=== PATIENT | female | born 1985 | race Two or more races ===

== ENCOUNTER 2020-03-18 17:00 | Outpatient (REF) | payer OTHER, SELFPAY ==
[2020-03-18 17:40] LABS: MANUAL DIFF FLAG NO
[2020-03-18 17:45] LABS: Basophils Absolute Auto 0.1 X10*3/uL (0.0-0.2); Basophils Percent Auto 0.5 % (0-2); Eosinophils Absolute Auto 0.1 X10*3/uL (0.0-0.4); Eosinophils Percent Auto 0.9 % (0-4); Hematocrit 42.1 % (37-47); Hemoglobin 13.4 g/dl (12.0-16.0); Imm Gran Abs Auto 0.03 X10*3/uL (0.00-0.03); Imm Gran Pct Auto 0.3 % (0.0-0.4); Lymphocytes Absolute Auto 2.3 X10*3/uL (1.2-4.9); Lymphocytes Percent Auto 24.3 % (20-40); Mean Corpuscular HGB Conc 31.8 g/dl (31.0-35.0); Mean Corpuscular Hemoglobin 27.9 pg (27.0-33.0); Mean Corpuscular Volume 87.7 fL (80-98); Monocytes Absolute Auto 0.4 X10*3/uL (0.1-1.2); Monocytes Percent Auto 4.7 % (2-11); Neutrophils Absolute Auto 6.4 X10*3/uL (2.0-8.3); Neutrophils Percent Auto 69.3 % (45-73); Platelet Count 310 X10*3/uL (160-400); Red Cell Distribution Width 13.8 % (11.0-16.0); White Blood Count 9.3 X10*3/uL (4.8-10.8)
[2020-03-18 18:06] LABS: Anion Gap 14 (12-20); Blood Urea Nitrogen 19 mg/dL (9-16); Carbon Dioxide 24 mmol/L (22-29); Chloride 104 mmol/L (96-108); Estimated Glomerular Filt Rate > 60; Glucose Random 77 mg/dL (60-115); Potassium 4.5 mmol/l (3.3-5.1); Sodium 137 mmol/L (135-145)
[2020-03-18 18:14] LABS: HCG Quantitative < 2 mIU/mL
== END 2020-03-18 17:01 | disposition home or self-care (01) ==
LOC: HO.LAB 17:00
PROVIDERS: PCP Nurse Practitioner Family; Visit Provider Nurse Practitioner Family
DX: Z13.228 Encounter for screening for other metabolic disorders (principal); Z32.00 Encounter for pregnancy test, result unknown
CPT/HCPCS: 36415; 80048; 84702; 85025

== ENCOUNTER 2020-07-09 08:54 | Outpatient (REF) | payer OTHER, SELFPAY ==
--- NOTE | ~2020-07-09 | MM_ITS ---
EXAMINATION: MM DIAGNOSTIC DIGITAL BREAST TOMOSYNTHESIS, LEFT CLINICAL INFORMATION: Short interval six-month follow-up probable benign nodule anterior 3:00 left breast. Age 35. TC score 7%. COMPARISON: Mammography: 01/09/2020, 09/14/2016, targeted breast ultrasound 01/09/2020. TECHNIQUE: Digital breast tomosynthesis is performed in both the craniocaudal and mediolateral oblique views along with computer-aided detection (CAD). Synthesized 2D images are generated from the tomosynthesis. FINDINGS: There are scattered areas of fibroglandular density (ACR BI-RADS breast composition Category b). The tiny circumscribed nodule under 5 mm anterior 3:00 position is stable from prior exam 01/09/2020. Finding is new from mammography 2017. It will be reassessed again at time of annual follow-up, due in 6 months. The remainder of the left breast is unremarkable. Results are provided to the patient at time of visit by the technologist. MM/MM tomosynthesis diagnostic LT IMPRESSION: Small circumscribed nodule anterior 3:00 position stable from prior exam 01/09/2020. ASSESSMENT: BI-RADS 3: Probably Benign RECOMMENDATION: Diagnostic mammography in 6 months. This patient's information was entered into a reminder system with a target due date for their next mammogram.
== END 2020-07-09 08:55 | disposition home or self-care (01) ==
LOC: HO.MAMMO 08:54
PROVIDERS: Visit Provider Obstetrics & Gynecology
DX: N63.25 Unspecified lump in the left breast, overlapping quadrants (principal)
CPT/HCPCS: 77061; 77065

== ENCOUNTER 2021-01-12 12:26 | Outpatient (REF) | payer OTHER, SELFPAY ==
--- NOTE | ~2021-01-12 | MM_ITS ---
EXAMINATION: MM DIAGNOSTIC DIGITAL BREAST TOMOSYNTHESIS, BILATERAL CLINICAL INFORMATION: 35-year-old for follow-up probable benign circumscribed nodule anterior 3:00 left breast. Finding noted on diagnostic mammography performed for palpable concern contralateral right breast. Right breast symptoms no longer present. Due for yearly. The lifetime risk of breast cancer based on the Tyrer-Cuzick Model is 7%. COMPARISON: Mammography: 07/09/2020, 01/09/2020, 09/14/2016, targeted right breast ultrasound 09/14/2016, targeted bilateral breast ultrasound 01/09/2020. TECHNIQUE: Digital breast tomosynthesis is performed in both the craniocaudal and mediolateral oblique views along with computer-aided detection (CAD). Synthesized 2D images are generated from the tomosynthesis. FINDINGS: There are scattered areas of fibroglandular density (ACR BI-RADS breast composition Category b). Breast tissue composition borders on predominantly fatty. Background stromal and fibroglandular densities are stable. There is asymmetry of the breasts, right larger, similar to prior studies. There is no interval mass or architectural abnormality or developing density. No abnormal calcifications. The axilla and skin contours are unremarkable. The circumscribed tiny nodule anterior 3:00 left breast is stable. Margins remain smooth. There was no ultrasound correlate noted previously. Finding will be reassessed again in 6 months with diagnostic left mammography. Results are provided to the patient at time of visit by the technologist. MM/MM tomosynthesis diagnostic BI IMPRESSION: 1. Left: Tiny smooth circumscribed nodule anterior 3:00 position, stable. 2. Right: No mammographic evidence of malignancy. ASSESSMENT: BI-RADS 3: Probably Benign RECOMMENDATION: Diagnostic left mammography in 6 months. This patient's information was entered into a reminder system with a target due date for their next mammogram.
== END 2021-01-12 12:27 | disposition home or self-care (01) ==
LOC: HO.MAMMO 12:26
PROVIDERS: Visit Provider Obstetrics & Gynecology
DX: N64.89 Other specified disorders of breast (principal)
CPT/HCPCS: 77062; 77066

== ENCOUNTER 2021-03-19 13:47 | Outpatient (REF) | payer OTHER, SELFPAY ==
[2021-03-19 17:03] LABS: HCG Quantitative 15 mIU/mL
== END 2021-03-19 13:48 | disposition home or self-care (01) ==
LOC: HO.HMGCLDS 13:47
PROVIDERS: Visit Provider Physician Assistant Medical
DX: Z32.00 Encounter for pregnancy test, result unknown (principal)
CPT/HCPCS: 36415; 84702

== ENCOUNTER 2021-03-30 11:31 | Outpatient (REF) | payer OTHER, SELFPAY ==
[2021-03-30 14:34] LABS: HCG Quantitative 20 mIU/mL
== END 2021-03-30 11:32 | disposition home or self-care (01) ==
LOC: HO.WFDLDS 11:31
PROVIDERS: Visit Provider Hospitalist
DX: O20.9 Hemorrhage in early pregnancy, unspecified (principal)
CPT/HCPCS: 36415; 84702

== ENCOUNTER 2021-04-02 08:03 | Outpatient (REF) | payer OTHER, SELFPAY ==
[2021-04-02 09:48] LABS: HCG Quantitative < 2 mIU/mL
== END 2021-04-02 08:04 | disposition home or self-care (01) ==
LOC: HO.LAB 08:03
PROVIDERS: PCP Internal Medicine; Visit Provider Hospitalist
DX: O20.9 Hemorrhage in early pregnancy, unspecified (principal)
CPT/HCPCS: 36415; 84702

== ENCOUNTER 2021-04-22 12:21 | Outpatient (REF) | payer OTHER, SELFPAY ==
[2021-04-22 13:49] LABS: Basophils Absolute Auto 0.1 X10*3/uL (0.0-0.2); Basophils Percent Auto 0.6 % (0-2); Eosinophils Absolute Auto 0.1 X10*3/uL (0.0-0.4); Eosinophils Percent Auto 0.8 % (0-4); Hematocrit 43.1 % (37.0-47.0); Hemoglobin 13.7 g/dl (12.0-16.0); Imm Gran Abs Auto 0.02 X10*3/uL (0.00-0.03); Imm Gran Pct Auto 0.2 % (0.0-0.4); Lymphocytes Absolute Auto 2.6 X10*3/uL (1.2-4.9); Lymphocytes Percent Auto 23.8 % (20-40); MANUAL DIFF FLAG NO; Mean Corpuscular HGB Conc 31.8 g/dl (31.0-35.0); Mean Corpuscular Hemoglobin 27.7 pg (27.0-33.0); Mean Corpuscular Volume 87.1 fL (80.0-98.0); Mean Platelet Volume 11.2 fL (9.4-12.3); Monocytes Absolute Auto 0.6 X10*3/uL (0.1-1.2); Monocytes Percent Auto 5.9 % (2-11); Neutrophils Absolute Auto 7.4 x10*3/uL (2.0-8.3); Neutrophils Percent Auto 68.7 % (45-73); Platelet Count 284 X10*3/uL (160-400); Red Blood Count 4.95 X10*6/uL (4.20-5.50); Red Cell Distribution Width 14.1 % (11.0-16.0); White Blood Count 10.8 X10*3/uL (4.8-10.8)
[2021-04-22 14:10] LABS: Estimated Average Glucose 108 mg/dL; Hemoglobin A1c % 5.4 %
[2021-04-22 14:12] LABS: Alanine Aminotransferase 18 U/L (0-31); Anion Gap 11 (12-20); Aspartate Amino Transferase 18 U/L (5-31); Blood Urea Nitrogen 14 mg/dL (9-16); Calcium 9.4 mg/dL (8.4-10.2); Carbon Dioxide 26 mmol/L (22-29); Chloride 106 mmol/L (96-108); Cholesterol 178 mg/dL; Estimated Glomerular Filt Rate > 60; Glucose Fasting 74 mg/dL (60-99); HDL Cholesterol 52 mg/dL; LDL Cholesterol Calculated 103 mg/dl; Potassium 4.1 mmol/L (3.3-5.1); Sodium 139 mmol/L (135-145); Triglycerides 118 mg/dL
[2021-04-22 14:32] LABS: TSH reflex Free T4 1.13 uIU/mL (0.32-4.0); Vitamin D 25-OH Total 7.3 ng/mL (>30)
== END 2021-04-22 12:22 | disposition home or self-care (01) ==
LOC: HO.HMGCLDS 12:21
PROVIDERS: PCP Internal Medicine; Visit Provider Internal Medicine
DX: Z00.01 Encounter for general adult medical examination with abnormal findings (principal); F32.A Depression, unspecified; F41.9 Anxiety disorder, unspecified; K58.9 Irritable bowel syndrome, unspecified; R73.01 Impaired fasting glucose
CPT/HCPCS: 36415; 80048; 80061; 82306; 83036; 84443; 84450; 84460; 85025

== ENCOUNTER → 2021-05-12 15:38 | Outpatient (BNVA) | payer OTHER, SELFPAY | PROVIDERS: PCP Internal Medicine; Referring Provider Internal Medicine; Visit Provider Nurse Practitioner | DX: K21.9 Gastro-esophageal reflux disease without esophagitis (principal); K75.81 Nonalcoholic steatohepatitis (NASH); K82.4 Cholesterolosis of gallbladder; R11.0 Nausea; R19.7 Diarrhea, unspecified | CPT/HCPCS: 99212 ==

== ENCOUNTER 2021-06-12 14:14 | Outpatient (REF) | payer OTHER, SELFPAY ==
[2021-06-12 15:38] LABS: C Reactive Protein 0.57 mg/dL (< or = 0.50); Lipase 23 U/L (8-78)
[2021-06-12 15:59] LABS: Ferritin 22 ng/mL (10-122)
[2021-06-13 14:18] LABS: Transglutaminase Ab IgG <1.0 U/mL; Transglutaminase IgA <1.0 U/mL
[2021-06-13 14:22] LABS: Anti Nuclear Antibody Screen NEGATIVE (NEGATIVE)
[2021-06-16 13:16] LABS: Alpha Fetoprotein 1.7 ng/mL
[2021-06-16 15:06] LABS: Mitochondrial Antibodies NEGATIVE (NEGATIVE)
[2021-06-17 00:16] LABS: Smooth Muscle Antibody <20 U (<20)
== END 2021-06-12 14:15 | disposition home or self-care (01) ==
LOC: HO.LAB 14:14
PROVIDERS: Visit Provider Nurse Practitioner
DX: K75.81 Nonalcoholic steatohepatitis (NASH) (principal); K82.4 Cholesterolosis of gallbladder; R11.0 Nausea
CPT/HCPCS: 36415; 82105; 82728; 83690; 86015; 86038; 86039; 86140; 86255; 86256; 86364

== ENCOUNTER → 2021-06-16 15:14 | Outpatient (BNVA) | payer OTHER, SELFPAY | PROVIDERS: PCP Internal Medicine; Referring Provider Internal Medicine; Visit Provider Nurse Practitioner | DX: K75.81 Nonalcoholic steatohepatitis (NASH) (principal); R19.7 Diarrhea, unspecified; K21.9 Gastro-esophageal reflux disease without esophagitis; R11.0 Nausea | CPT/HCPCS: 99212 ==

== ENCOUNTER 2021-06-22 07:52 | Day surgery (SDC) | payer OTHER, SELFPAY ==
[2021-06-22 08:09] VITALS: BMI 34.0
[2021-06-22 08:31] LABS: UPreg QC Valid YES; Urine Pregnancy NEGATIVE (NEGATIVE)
[2021-06-22 08:49] VITALS: BP 114/70; PULSE 68; RESP 16; TEMP 37; O2SAT 99; BMI 34.0
--- NOTE | 2021-06-22 08:50 | P.CONAN_ITS ---
[facility] Active Problems Active Problems: All Active Problems (Updated 06/09/21 @ 14:33 by Nellie Turner MD) History of recurrent miscarriages (Acute) Diarrhea (Acute) Nausea (Acute) BRODY (nonalcoholic steatohepatitis) (Acute) GERD (gastroesophageal reflux disease) (Acute) Gallbladder polyp (Acute) Vaccine refused by patient (Acute) Annual visit for general adult medical examination with abnormal findings (Acute) Anxiety and depression (Acute) Past Medical History Medical History Annual visit for general adult medical examination with abnormal findings Anxiety and depression Gallbladder polyp History of recurrent miscarriages IBS (irritable bowel syndrome) Vaccine refused by patient Family History Family History Father Substance use disorder Diabetes mellitus Mother Substance use disorder Mental health disorder Maternal Aunt Substance use disorder Maternal Grandfather Substance use disorder Brother Substance use disorder Mental health disorder Sister Mental health disorder Sister Mental health disorder Family history of problems with anesthesia: No Surgical History Surgical History No pertinent past surgical history History of Problems with Anesthesia: No Social History Social History Housing: House Patient Tobacco Use Status: Current everyday Tobacco user Tobacco use type: Cigarette Cigarettes Per Day: 3 e-Cigarette/Vaping Use: Never Used Use of substances other than those prescribed or required for medical reasons: No Advance Directives: No Advance Directives Information Provided: Yes service: No Current occupational status: employed Meds Allergies Allergy/AdvReac Type Severity Reaction Status Date / Time No Known Allergies Allergy Verified 06/16/21 15:42 Active Medications: Current Medications Lactated Ringer's (Lr) 1,000 mls @ 50 mls/hr IVCONT .Q20H RYAN Exam Exam Date and Time: June 22, 2021 0850 Height,Weight and Vital Signs: Height 5 ft Weight 78.925 kg Pertinent Lab Results Pertinent Lab Results: Laboratory Tests 06/22/21 08:05 Urine Test NEGATIVE Airway Mallampati Class: II TM Dist: >3cm Neck ROM: Full Heart: rrr Lungs: cta Assessment and Plan Assessment Anesthesia Assessment: Anesthesia Plan Discussed and Chart Reviewed Final Anesthetic Review Family History of Problems with Anesthesia: No History of Problems with Anesthesia: No NPO: No ASA Class: II Final Preanesthetic Review: No Changes in Pt Med Stat, Meds/Allgs Chart Reviewed and Consent Obtained/Reviewed Patient Risk: Intermediate Procedure Risk: Intermediate Anesthetic Plan Anesthetic Plan: MAC: Disposition: Standard PACU
--- NOTE | 2021-06-22 09:18 | MHC.SHP ---
Pre-Procedural Eval Section A Date of Service: 06/22/21 The patient is an INPATIENT: No Changes since office visit: Yes Patient answered all questions; No Cold of Flu in the past 2 weeks, No New Medical Problems and No Changes in Medication The History & Physical has been completed within 30 days and I have reviewed it.: Yes Section B Chief Complaint: reflux disease Allergies: Allergies Allergy/AdvReac Type Severity Reaction Status Date / Time No Known Allergies Allergy Verified 06/16/21 15:42 Plan I have reviewed the history and physical and performed a pertinent physical examination on my patient. No changes have occurred unless specified.
--- NOTE | 2021-06-22 09:19 | PM.OP ---
Brief Operative Note Date of Service: 06/22/21 Pre-op diagnosis: Nausea, abdominal pain, diarrhea and constipation Post-op diagnosis: other (Esophagitis, gastritis) Procedure: FLEXIBLE TRANSORAL UPPER GASTROINTESTINAL ENDOSCOPY WITH BIOPSIES Consent: Indications for the procedure and potential complications of bleeding, perforation, reaction to medications and missed diagnosis were discussed with the patient and informed consent was obtained. Instrument: Olympus GIF H 190 mid size upper endoscope Monitoring: Vital signs and clinical assessment, continuous EKG monitoring, Pulse oximetry, Carbon Dioxide monitoring and blood pressure monitoring were done throughout the procedure. Procedure: The patient was placed in the left lateral decubitis position and pre-procedure medications were administered and a bite block was placed. The endoscope was inserted into the mouth and advanced under direct vision to the third part of duodenum. A careful inspection was made as the upper endoscope was withdrawn including a retroflexed examination of the proximal stomach; Findings and interventions are described below. Findings: Larynx: Normal Esophagus: GE junction at 34 cms. Focal esophagitis at GE junction with nodular appearing mucosa on the gastric side - biopsies. Stomach: Mild gastric erythema. Biopsies were obtained. Grade 2 flap valve on retroflexed examination of the cardia. Duodenum: Normal bulb and descending duodenum. Biopsies were obtained from 3rd part of the duodenum to check for celiac sprue. Intervention: Biopsies as noted above Impression and Post Procedure Diagnosis: Endoscopy Findings: ESOPHAGUS: GE junction at 34 cms. Focal esophagitis at GE junction with nodular appearing mucosa on the gastric side - biopsies. STOMACH: Gastritis - biopsied to check for H pylori DUODENUM: Normal - biopsies obtained to rule out celiac sprue Plan: Await pathology results Patient has an appointment on 07/06/21 in the GI Clinic with Rupal Ray NP . Above findings were reviewed with the patient and GERD handout was given in the discharge area Surgeon: Shannan Morse MD Anesthesia: MAC (Dr Lemus) Was an Clinical Nurse Educator used for this Procedure?: Yes Clinical Nurse Educator: Belle Van Estimated blood loss (mL): 0 Pathology: other (A. small bowel bxs, R/O celiac B. gastric antrum bxs, R/O H. pylori C. G-E junction bxs, R/O esophagitis) Condition: stable Disposition: PACU
--- NOTE | 2021-06-22 09:24 | W.PM.OPN ---
Operative Note Operative Note Date of Service: 06/22/21 Narrative: Pre-op diagnosis: Nausea, abdominal pain, diarrhea and constipation Post-op diagnosis:?other (Esophagitis, gastritis) Procedure: FLEXIBLE TRANSORAL UPPER GASTROINTESTINAL ENDOSCOPY WITH BIOPSIES Consent:?Indications for the procedure and potential complications of bleeding, perforation, reaction to medications and missed diagnosis were discussed with the patient and informed consent was obtained. Instrument:?Olympus GIF H 190 mid size upper endoscope Monitoring: Vital signs and clinical assessment, continuous EKG monitoring, Pulse oximetry, Carbon Dioxide monitoring and blood pressure monitoring were done throughout the procedure. Procedure:?The patient was placed in the left lateral decubitis position and pre-procedure medications were administered and a bite block was placed. The endoscope was inserted into the mouth and advanced under direct vision to the third part of duodenum. A careful inspection was made as the upper endoscope was withdrawn including a retroflexed examination of the proximal stomach; Findings and interventions are described below. Findings: Larynx:? Normal Esophagus: GE junction at 34 cms. Focal esophagitis at GE junction with nodular appearing mucosa on the gastric side - biopsies. Stomach: Mild gastric erythema. Biopsies were obtained. Grade 2 flap valve on retroflexed examination of the cardia. Duodenum: Normal bulb and descending duodenum.? Biopsies were obtained from 3rd part of the duodenum to check for celiac sprue. Intervention: Biopsies as noted above Impression and Post Procedure Diagnosis: Endoscopy Findings: ESOPHAGUS: GE junction at 34 cms. Focal esophagitis at GE junction with nodular appearing mucosa on the gastric side - biopsies. STOMACH:? Gastritis - biopsied to check for H pylori DUODENUM:? Normal - biopsies obtained to rule out celiac sprue Plan: Await pathology results Patient is scheduled for an abd US and a HIDA scan later this month She has a follow-up appointment on 07/06/21 in the GI Clinic with? Rupal Ray NP? . Above findings were reviewed with the patient and GERD handout was given in the discharge area Surgeon: Shannan Morse MD Anesthesia:?MAC (Dr Lemus) Was an Director Of Financial Planning used for this Procedure?:?Yes Director Of Financial Planning:?Belle Van Estimated blood loss (mL):?0 Pathology:?other (A. small bowel bxs, R/O celiac? B. gastric antrum bxs, R/O H. pylori? C. G-E junction bxs, R/O esophagitis) Condition:?stable Disposition:?PACU
[2021-06-22 09:40] VITALS: BP 99/66; PULSE 68; RESP 16; TEMP 37.2; O2SAT 97
[2021-06-22 09:55] VITALS: BP 103/63; PULSE 62; RESP 18; TEMP 37.2; O2SAT 99
== END 2021-06-22 10:25 | disposition home or self-care (01) ==
PROVIDERS: Anesthesiology; PCP Internal Medicine; Visit Provider Internal Medicine Gastroenterology
PROC: 0DJ08ZZ Inspection of Upper Intestinal Tract, Via Natural or Artificial Opening Endoscopic (ICD-10-PCS; CPT 43235; principal; 2021-06-22 09:20)
DX: K21.9 Gastro-esophageal reflux disease without esophagitis (principal); K20.80 Other esophagitis without bleeding; K29.50 Unspecified chronic gastritis without bleeding; K75.81 Nonalcoholic steatohepatitis (NASH); K82.4 Cholesterolosis of gallbladder; R19.7 Diarrhea, unspecified; Z79.899 Other long term (current) drug therapy; F17.210 Nicotine dependence, cigarettes, uncomplicated
CPT/HCPCS: 43239; 81025; 88305; 88342

== ENCOUNTER 2021-07-06 09:18 | Outpatient (REF) | payer OTHER, SELFPAY ==
--- NOTE | ~2021-07-06 | US_ITS ---
EXAMINATION: US ABDOMEN COMPLETE CLINICAL INFORMATION: Nausea. COMPARISON: Ultrasound abdomen 07/10/2018 and 12/26/2017. CT abdomen and pelvis 12/28/2006. TECHNIQUE: Real-time imaging of the abdominal viscera. FINDINGS: PANCREAS: Pancreas is not well visualized. There is a 5 mm echogenic density in the neck of the pancreas questionable for a calcification or stone. This was not seen on prior exams. ABDOMINAL AORTA: The proximal, mid, and distal segments are normal in caliber. INFERIOR VENA CAVA: Visualized portions are normal. LIVER: The liver is normal in size. The liver contour is normal. Liver echotexture is increased. There is a 1.3 cm hypoechoic lesion in the left lobe of the liver. There is a 0.9 x 0.7 x 1.2 cm hypoechoic area in the right lobe of the liver which may represent an area of focal fatty sparing. No other liver lesion is seen. There is no intrahepatic biliary duct dilatation seen. GALLBLADDER: There are multiple echogenic densities in the gallbladder. These do not move or shadow and most likely represent gallbladder wall polyps. The largest measures 0.8 x 0.7 x 0.9 cm. This appears increased in size from previous exam which measured 5 x 6 x 6 mm. The gallbladder wall does not appear thickened. There is no pericholecystic fluid. COMMON BILE DUCT: Normal in caliber measuring 0.5 cm in diameter. RIGHT KIDNEY: Normal. No hydronephrosis. No renal calculi or focal parenchymal lesions. The kidney measures 11.2 cm in maximum dimension. LEFT KIDNEY: Normal. No hydronephrosis. No renal calculi or focal parenchymal lesions. The kidney measures 11.1 cm in maximum dimension. SPLEEN: Normal. The spleen measures 11.3 cm in maximum dimension. FREE FLUID: None. US/US abdomen complete IMPRESSION: Echogenic liver probably representing fatty infiltration. Hypoechoic area adjacent to the gallbladder probably representing an area of focal fatty sparing. Newly appreciated 1.3 cm hypoechoic lesion in the left lobe of the liver. Multiple gallbladder wall polyps, the largest measuring 8 x 7 x 9 mm, increased in size from prior exam. Limited visualization of the pancreas. Newly appreciated 5 mm echogenic lesion in the neck of the pancreas questionable for a calcification or stone. Followup abdominal imaging with contrast recommended, preferably MRI. Findings will be communicated by the [place] work flow digital imaging technician.
== END 2021-07-06 09:19 | disposition home or self-care (01) ==
LOC: HO.US 09:18
PROVIDERS: Visit Provider Nurse Practitioner
DX: R11.0 Nausea (principal)
CPT/HCPCS: 76700

== ENCOUNTER → 2021-07-07 10:47 | Outpatient (REF) | payer OTHER, SELFPAY ==
--- NOTE | ~2021-07-07 | NM_ITS ---
EXAMINATION: NM BILIARY TRACT WITH ORAL FATTY MEAL CLINICAL INFORMATION: Nausea. COMPARISON: No previous biliary scan is available for comparison. Abdominal ultrasound dated 07/06/2021 is available for comparison. CT scan of the abdomen dated 12/28/2006 is also available for comparison. TECHNIQUE: Serial gamma scintillation camera images were obtained over the abdomen for a total observation period of 130 minutes following the intravenous administration of 5 mCi Tc-99m Mebrofenin. FINDINGS: There is good concentration of activity in the liver by 5 minutes post injection. Biliary activity is visualized by 10 minutes postinjection and small bowel activity is well visualized by 15 minutes post injection. The gallbladder is well visualized by 30 minutes post injection. At 60 minutes post Mebrofenin injection, 8 ounces of Ensure-plus Brand was administered orally and an additional 60 minutes of images were obtained. There is only minimal gallbladder emptying following ingestion of the fatty meal. At the end of the study there is abnormal retention in the gallbladder but almost complete clearance of activity from the liver and visualization of diffuse small bowel activity. The calculated gallbladder ejection fraction is 18% (normal gallbladder ejection fraction using Ensure supplement orally is greater than 33%). NM/NM hepatobiliary wo pharm IMPRESSION: 1. Visualization of the gallbladder is evidence of a patent cystic duct and strong evidence against the diagnosis of acute cholecystitis. The common bile duct is patent. Liver function appears normal. 2. Poor gallbladder emptying and a low gallbladder ejection fraction are evidence of impaired gallbladder contractility and most likely due to chronic cholecystitis.
== END ==
LOC: HO.NUCMED 10:47
PROVIDERS: Visit Provider Nurse Practitioner
DX: R11.0 Nausea (principal)
CPT/HCPCS: 78226; A9537

== ENCOUNTER 2021-07-13 12:56 | Outpatient (REF) | payer OTHER, SELFPAY ==
--- NOTE | ~2021-07-13 | MM_ITS ---
EXAMINATION: MM DIAGNOSTIC DIGITAL BREAST TOMOSYNTHESIS, LEFT CLINICAL INFORMATION: Short interval six-month follow-up probable benign tiny nodular focal asymmetric density anterior 9 3:00 left breast. The lifetime risk of breast cancer based on the Tyrer-Cuzick Model is 7%. COMPARISON: Mammography: 01/12/2021, 01/09/2021, 01/09/2020 (diagnostic, BI-RADS 3), 09/14/2016; targeted left breast ultrasound 01/09/2020. TECHNIQUE: Digital breast tomosynthesis is performed in both the craniocaudal and mediolateral oblique views along with computer-aided detection (CAD). Synthesized 2D images are generated from the tomosynthesis. FINDINGS: There are scattered areas of fibroglandular density (ACR BI-RADS breast composition Category b). Breast tissue composition borders on predominantly fatty. Background stromal and fibroglandular densities are stable since 2020. There is no developing density or interval architectural abnormality. Finding will be reassessed again at time of annual bilateral mammography to conclude long-term surveillance. Remainder left breast is unremarkable. Results are provided to the patient at time of visit by the technologist. MM/MM tomosynthesis diagnostic LT IMPRESSION: Tiny focal nodular asymmetric density anterior 3:00 position stable from prior diagnostic exams. ASSESSMENT: BI-RADS 3: Probably Benign RECOMMENDATION: Diagnostic mammography at time of annual mammography, due in 6 months. This patient's information was entered into a reminder system with a target due date for their next mammogram.
== END 2021-07-13 12:57 | disposition home or self-care (01) ==
LOC: HO.MAMMO 12:56
PROVIDERS: Visit Provider Obstetrics & Gynecology
DX: N64.89 Other specified disorders of breast (principal)
CPT/HCPCS: 77061; 77065

== ENCOUNTER → 2021-07-28 16:43 | Outpatient (BNVA) | payer OTHER, SELFPAY | PROVIDERS: PCP Internal Medicine; Referring Provider Internal Medicine; Visit Provider Nurse Practitioner | DX: K75.81 Nonalcoholic steatohepatitis (NASH) (principal); K82.8 Other specified diseases of gallbladder; R19.7 Diarrhea, unspecified; K21.9 Gastro-esophageal reflux disease without esophagitis; R11.0 Nausea; F17.210 Nicotine dependence, cigarettes, uncomplicated | CPT/HCPCS: 99212 ==

== ENCOUNTER 2021-10-09 13:35 | Outpatient (REF) | payer OTHER, SELFPAY ==
[2021-10-09 14:54] LABS: HCG Quantitative 541 mIU/mL
== END 2021-10-09 13:36 | disposition home or self-care (01) ==
LOC: HO.HMGCLDS 13:35
PROVIDERS: Visit Provider Internal Medicine
DX: Z32.01 Encounter for pregnancy test, result positive (principal); N92.6 Irregular menstruation, unspecified
CPT/HCPCS: 36415; 84702

== ENCOUNTER 2022-01-21 12:39 | Outpatient (REF) | payer OTHER, SELFPAY ==
--- NOTE | ~2022-01-21 | MM_ITS ---
EXAMINATION: MM DIAGNOSTIC DIGITAL BREAST TOMOSYNTHESIS, BILATERAL CLINICAL INFORMATION: Follow-up probable benign punctate nodular asymmetry anterior outer left breast initially noted at diagnostic mammography 01/09/2024 contralateral right-sided symptoms. No known family history breast cancer. TC score 7%. COMPARISON: Mammography: 07/13/2021, 01/12/2021, 07/09/2020, 01/09/2020 (BI-RADS 0), 09/14/2016. TECHNIQUE: Digital breast tomosynthesis is performed in both the craniocaudal and mediolateral oblique views along with computer-aided detection (CAD). Synthesized 2D images are generated from the tomosynthesis. FINDINGS: The breasts are almost entirely fatty (ACR BI-RADS breast composition Category a). Background stromal markings are stable. The tiny nodular asymmetry anterior outer left breast is stable from prior diagnostic studies and now considered to be benign. There is asymmetry of the breast, right slightly larger, similar to prior exams. No interval mass or architectural abnormality or abnormal calcifications. The axilla are unremarkable. Skin contours are smooth. Results are provided to the patient at time of visit by the technologist. MM/MM tomosynthesis diagnostic BI IMPRESSION: No mammographic evidence of malignancy. ASSESSMENT: BI-RADS 2: Benign RECOMMENDATION: Routine annual mammography screening, beginning age 40, or earlier as clinical risk factors warrant. This patient's information was entered into a reminder system with a target due date for their next mammogram.
== END 2022-01-21 12:40 | disposition home or self-care (01) ==
LOC: HO.MAMMO 12:39
PROVIDERS: PCP Internal Medicine; Visit Provider Internal Medicine
DX: R92.2 Inconclusive mammogram (principal)
CPT/HCPCS: 77062; 77066

== ENCOUNTER 2022-03-04 13:59 | Emergency (ER) | payer OTHER, SELFPAY ==
--- NOTE | ~2022-03-04 | XR_ITS ---
EXAMINATION: XR CHEST CLINICAL INFORMATION: Chest pain. COMPARISON: None TECHNIQUE: Frontal view of the chest was obtained. FINDINGS: No significant abnormality is noted involving the heart, lungs, mediastinum, bony thorax or soft tissues. XR/XR chest 1V IMPRESSION: No acute cardiopulmonary process.
[2022-03-04 14:37] VITALS: BP 120/77; PULSE 79; RESP 18; TEMP 36.6; O2SAT 99; BMI 32.5
--- NOTE | 2022-03-04 14:38 | ECG_ITS ---
Test Reason : chest pain Blood Pressure : / mmHG Vent. Rate : 079 BPM Atrial Rate : 079 BPM P-R Int : 144 ms QRS Dur : 084 ms QT Int : 382 ms P-R-T Axes : 028 030 018 degrees QTc Int : 438 ms Normal sinus rhythm T wave abnormality, consider anterior ischemia Abnormal ECG No previous ECGs available Referred By: Angy Castellon Electronically Signed By:CECIL SUAREZ MD
--- NOTE | 2022-03-04 14:38 | ED.CHESTPAIN ---
HPI - Chest Pain General Chief Complaint: Chest Pain Stated Complaint: abnormal heart beat Time Seen by Provider: 03/04/22 18:55 Source: patient Mode of arrival: ambulatory History of Present Illness HPI narrative: 37-year-old female with a past medical history of IBS, anxiety, depression, presenting to ED sent in by PCP for abnormal EKG findings. Patient reports increasing anxiety over the past few weeks, with chest discomfort times 2-3 days. Reports pain worse with palpation with mild associated SOB and nausea. Denies fever, chills, cough, abdominal pain, pedal edema, calf pain Related Data Previous Rx's Medication Instructions Recorded lidocaine 5 % topical patch 1 patch topical DAILY PRN pain #30 03/04/22 (Lidoderm) ea lorazepam 1 mg tablet (Ativan) 1 mg PO TID PRN anxiety #10 tabs 03/04/22 naproxen 500 mg tablet 500 mg PO BID PRN pain 10 days #20 03/04/22 tabs Allergies Allergy/AdvReac Type Severity Reaction Status Date / Time No Known Allergies Allergy Verified 03/04/22 12:49 Review of Systems Review of Systems: Constitutional: No Fever, No Chills,No Fatigue, No Malaise ENT/Mouth: No Hearing loss, No Ear Pain, No Nasal Congestion, No Sinus Pain, No No sore throat, No Rhinorrhea, No Swallowing Difficulty Eyes: No Eye Pain, No Swelling, No Redness, No Vision Changes Cardiovascular: + Chest Pain, + SOB, No Dyspnea on Exertion, No Orthopnea, No Edema, No Palpitations Respiratory: No Cough, No Sputum, No Wheezing, No Smoke Exposure, No Dyspnea Gastrointestinal: + Nausea, No Vomiting, No Diarrhea, No Constipation, No Abdominal pain, Genitourinary: No Dysuria, No Urinary Frequency, No Hematuria, No Urgency, No Flank Pain Musculoskeletal: No joint pain, No Myalgias, No Joint Swelling Skin: No Skin Lesions, No rash Neuro: No Weakness, No Numbness, No Paresthesias, No Dizziness, No Headache Psych: +Anxiety Yes all other systems are reviewed and are negative Constitutional: Constitutional: Reports as per [facility] Past Medical History Attestation statement: The following information was validated with the patient. Medical History Annual visit for general adult medical examination with abnormal findings Anxiety and depression Gallbladder polyp History of recurrent miscarriages IBS (irritable bowel syndrome) Vaccine refused by patient Surgical History No pertinent past surgical history Family History Family History Father Substance use disorder Diabetes mellitus Mother Substance use disorder Mental health disorder Maternal Aunt Substance use disorder Maternal Grandfather Substance use disorder Brother Substance use disorder Mental health disorder Sister Mental health disorder Sister Mental health disorder Social History Social History Housing: House Patient Tobacco Use Status: Former Tobacco user Tobacco use type: Cigarette Cigarettes Per Day: 3 e-Cigarette/Vaping Use: Never Used Advance Directives: No Advance Directives Information Provided: Yes service: No Current occupational status: employed Cognitive needs: No Hearing needs: No Vision needs: No Physical Exam Vital Signs: Vital Signs: Last Vital Signs Temp 98 F 03/04/22 14:37 Pulse 62 03/04/22 18:45 Resp 16 03/04/22 18:45 BP 116/68 03/04/22 18:45 Pulse Ox 99 03/04/22 14:37 O2 Del Method 03/04/22 18:45 BMI result Body Mass Index 32.5 Const: General: cooperative, healthy appearing and no acute distress Orientation/consciousness: patient oriented x3 Limitations: no limitations HEENT: Head: Yes normal to inspection and Yes atraumatic Ears: hearing grossly normal bilaterally General nose exam: Normal external nose present Face and sinus: Yes normal facial exam Eyes: General: appearance normal, both eyes and all related structures EOM: EOMs intact bilaterally Neck: Neck: Yes normal visual inspection and Yes no meningeal signs Chest: Chest palpation & inspection: normal inspection of the chest, no crepitus and tenderness (upper chest wall) Resp: Effort & Inspection: normal respiratory effort and no respiratory distress Auscultation: clear to auscultation bilaterally, no crackles, no rales, no rhonchi and no wheezes Cardio: Rate: regular rate Heart sounds: S1 normal heart sound present and S2 normal heart sound present GI: Inspection: Yes normal to inspection Palpation (GI): Soft to palpation, nontender, no guarding and not rigid Skin: Rashes: no rashes Wounds: no wounds Neuro: General: patient oriented x3, tone normal and no meningeal signs Gait exam (Neuro): Normal gait present Extrem: General: Yes normal to inspection, Yes no pedal edema and Yes no calf tenderness Course Course Course Narrative: RME--37yoF w PMHx anxiety, depression, IBS, presenting to ED sent in from PCPs office for abnormal rate on EKG, pt reports CP, SOB and increased anxiety x 1 week. Denies fever, cough, pedal edema Nontoxic-appearing in triage, vitals stable EKG, labs, CXR and COVID-19 testing ordered 1900--XR chest 1V IMPRESSION: No acute cardiopulmonary process. -labs unremarkable. Troponin negative Results discussed with patient including worrisome signs and symptoms and strict return precautions, and when to return to the emergency department. They verbalized understanding and feel safe for discharge at this time. Medications Administered Discontinued Medications Generic Name Dose Route Start Last Admin Trade Name Freq PRN Reason Stop Dose Admin Naproxen 500 mg 03/04/22 19:05 03/04/22 19:21 Naproxen 500 Mg Tablet PO 03/04/22 19:06 500 mg ONCE ONE Administration MDM - Chest Pain MDM Narrative Medical decision making narrative: 37-year-old female with a past medical history of IBS, anxiety, depression, presenting to ED sent in by PCP for abnormal EKG findings. On exam there signs stable, NAD, nontoxic-appearing, chest pain reproducible on exam, lungs CTA, no pedal edema or calf tenderness. Concern for anxiety vs costochondritis vs ACS. Low suspicion for PE/pneumonia Plan: EKG, labs, CXR Differential Diagnosis Differential diagnosis: Likely atypical chest pain, costochondritis and chest pain Medical Records Data Attestation: I reviewed the patient's medical records. Lab Data Attestation: I reviewed the patient's lab results. Result diagrams: 03/04/22 15:41 03/04/22 15:41 Labs: Lab Results 03/04/22 03/04/22 03/04/22 Range/Units 15:41 15:41 15:41 WBC 10.1 (4.8-10.8) X10*3/uL RBC 5.09 (4.20-5.50) X10*6/uL Hgb 13.4 (12.0-16.0) g/dl Hct 42.4 (37.0-47.0) % MCV 83.3 (80.0-98.0) fL MCH 26.3 L (27.0-33.0) pg MCHC 31.6 (31.0-35.0) g/dl RDW 14.2 (11.0-16.0) % Plt Count 371 D (160-400) X10*3/uL MPV 10.1 (9.4-12.3) fL Immature Gran % (Auto) 0.3 (0.0-0.4) % Neut % (Auto) 70.1 (45-73) % Lymph % (Auto) 24.1 (20-40) % Phillips % (Auto) 4.7 (2-11) % Eos % (Auto) 0.3 (0-4) % Baso % (Auto) 0.5 (0-2) % Lymph # (Auto) 2.4 (1.2-4.9) X10*3/uL Phillips # (Auto) 0.5 (0.1-1.2) X10*3/uL Eos # (Auto) 0.0 (0.0-0.4) X10*3/uL Baso # (Auto) 0.1 (0.0-0.2) X10*3/uL Abs Immat Gran (auto) 0.03 (0.00-0.03) X10*3/uL Absolute Neuts (auto) 7.1 (2.0-8.3) x10*3/uL Absolute Nucleated RBC 0.000 (0.0-0.012) X10*3/uL Nucleated RBC % (auto) 0.0 (0.0-0.2) /100WBC Sodium 139 (135-145) mmol/L Potassium 4.2 (3.3-5.1) mmol/L Chloride 104 (96-108) mmol/L Carbon Dioxide 24 (22-29) mmol/L Anion Gap 15 (12-20) BUN 18 H (9-16) mg/dL Creatinine 0.82 (0.5-1.4) mg/dL Estim Creat Clear Calc 87.9 Estimated GFR > 60 Random Glucose 91 (60-115) mg/dL Calcium 9.9 (8.4-10.2) mg/dL Magnesium 2.1 (1.6-2.6) mg/dL Total Bilirubin 0.7 (0.0-1.0) mg/dL Direct Bilirubin 0.3 (0.0-0.5) mg/dL AST 19 (5-31) U/L ALT 20 (0-31) U/L Alkaline Phosphatase 69 (39-117) U/L Troponin I High Sens < 3.5 (<3.5-17.0) ng/L Total Protein 7.8 (6.5-8.0) g/dL Albumin 4.7 (3.5-5.0) g/dL TSH 0.92 (0.32-4.0) uIU/mL COVID-19 ([facility]) (Negative) COVID-19 Clin Com 03/04/22 Range/Units 15:41 WBC (4.8-10.8) X10*3/uL RBC (4.20-5.50) X10*6/uL Hgb (12.0-16.0) g/dl Hct (37.0-47.0) % MCV (80.0-98.0) fL MCH (27.0-33.0) pg MCHC (31.0-35.0) g/dl RDW (11.0-16.0) % Plt Count (160-400) X10*3/uL MPV (9.4-12.3) fL Immature Gran % (Auto) (0.0-0.4) % Neut % (Auto) (45-73) % Lymph % (Auto) (20-40) % Phillips % (Auto) (2-11) % Eos % (Auto) (0-4) % Baso % (Auto) (0-2) % Lymph # (Auto) (1.2-4.9) X10*3/uL Phillips # (Auto) (0.1-1.2) X10*3/uL Eos # (Auto) (0.0-0.4) X10*3/uL Baso # (Auto) (0.0-0.2) X10*3/uL Abs Immat Gran (auto) (0.00-0.03) X10*3/uL Absolute Neuts (auto) (2.0-8.3) x10*3/uL Absolute Nucleated RBC (0.0-0.012) X10*3/uL Nucleated RBC % (auto) (0.0-0.2) /100WBC Sodium (135-145) mmol/L Potassium (3.3-5.1) mmol/L Chloride (96-108) mmol/L Carbon Dioxide (22-29) mmol/L Anion Gap (12-20) BUN (9-16) mg/dL Creatinine (0.5-1.4) mg/dL Estim Creat Clear Calc Estimated GFR Random Glucose (60-115) mg/dL Calcium (8.4-10.2) mg/dL Magnesium (1.6-2.6) mg/dL Total Bilirubin (0.0-1.0) mg/dL Direct Bilirubin (0.0-0.5) mg/dL AST (5-31) U/L ALT (0-31) U/L Alkaline Phosphatase (39-117) U/L Troponin I High Sens (<3.5-17.0) ng/L Total Protein (6.5-8.0) g/dL Albumin (3.5-5.0) g/dL TSH (0.32-4.0) uIU/mL COVID-19 ([facility]) Negative (Negative) COVID-19 Clin Com See Note Discharge Plan Discharge Clinical Impression: Chest pain Patient Disposition: Home, Self-Care Instructions: Chest Pain (DC) Additional Instructions: Your blood work a chest x-ray were reassuring today in the emergency department. Please have close follow-up with your PCP and Cardiology Naproxen as an anti-inflammatory/pain medication, take with food If symptoms persist or worsen from your constant worsening shortness of breath/pain, swelling in her legs return to the emergency department Prescriptions: New lidocaine [Lidoderm] 5 % adhesive patch,medicated 1 patch topical DAILY MDD remove after 12 hours PRN (Reason: pain) Qty: 30 0RF Rx Instructions: leave on most painful area for up to 12 hrs naproxen 500 mg tablet 500 mg PO BID PRN (Reason: pain) 10 Days Qty: 20 0RF No Action lorazepam [Ativan] 1 mg tablet 1 mg PO TID PRN (Reason: anxiety) Qty: 10 0RF Referrals: [facility] [place] [facility] [Provider Group] Nellie Turner MD [Primary Care Provider] - Stand Alone Forms: Work/School Release Interventions: ED Discharge Assessment Last Done: 03/04/22 19:32 Discharge Date/Time: 03/04/22 19:33
[2022-03-04 15:46] LABS: MANUAL DIFF FLAG NO
[2022-03-04 15:47] LABS: Basophils Absolute Auto 0.1 X10*3/uL (0.0-0.2); Basophils Percent Auto 0.5 % (0-2); Eosinophils Percent Auto 0.3 % (0-4); Hematocrit 42.4 % (37.0-47.0); Hemoglobin 13.4 g/dl (12.0-16.0); Imm Gran Abs Auto 0.03 X10*3/uL (0.00-0.03); Imm Gran Pct Auto 0.3 % (0.0-0.4); Lymphocytes Absolute Auto 2.4 X10*3/uL (1.2-4.9); Lymphocytes Percent Auto 24.1 % (20-40); Mean Corpuscular HGB Conc 31.6 g/dl (31.0-35.0); Mean Corpuscular Hemoglobin 26.3 pg (27.0-33.0); Mean Corpuscular Volume 83.3 fL (80.0-98.0); Mean Platelet Volume 10.1 fL (9.4-12.3); Monocytes Absolute Auto 0.5 X10*3/uL (0.1-1.2); Monocytes Percent Auto 4.7 % (2-11); Neutrophils Absolute Auto 7.1 x10*3/uL (2.0-8.3); Neutrophils Percent Auto 70.1 % (45-73); Platelet Count 371 X10*3/uL (160-400); Red Blood Count 5.09 X10*6/uL (4.20-5.50); Red Cell Distribution Width 14.2 % (11.0-16.0); White Blood Count 10.1 X10*3/uL (4.8-10.8)
[2022-03-04 16:15] LABS: COVID-19 Test Negative (Negative); IDNOW Serial# 16C4AD1C
[2022-03-04 16:22] LABS: Troponin-I High Sensitivity < 3.5 ng/L (<3.5-17.0)
[2022-03-04 16:34] LABS: Alanine Aminotransferase 20 U/L (0-31); Albumin Level 4.7 g/dL (3.5-5.0); Alkaline Phosphatase 69 U/L (39-117); Anion Gap 15 (12-20); Aspartate Amino Transferase 19 U/L (5-31); Bilirubin Direct 0.3 mg/dL (0.0-0.5); Bilirubin Total 0.7 mg/dL (0.0-1.0); Blood Urea Nitrogen 18 mg/dL (9-16); Calcium 9.9 mg/dL (8.4-10.2); Carbon Dioxide 24 mmol/L (22-29); Chloride 104 mmol/L (96-108); Creatinine Clr Calc Pharmacy 87.9; Estimated Glomerular Filt Rate > 60; Glucose Random 91 mg/dL (60-115); Magnesium 2.1 mg/dL (1.6-2.6); Potassium 4.2 mmol/L (3.3-5.1); Sodium 139 mmol/L (135-145); TSH reflex Free T4 0.92 uIU/mL (0.32-4.0); Total Protein 7.8 g/dL (6.5-8.0)
[2022-03-04 18:45] VITALS: BP 116/68; PULSE 62; RESP 16
[2022-03-04] MEDS: NaPROXEN 500 MG TABLET PO (19:21)
== END 2022-03-04 19:33 | disposition home or self-care (01) ==
PROVIDERS: Physician Assistant; Emergency Provider Emergency Medicine; PCP Internal Medicine
DX: R07.89 Other chest pain (principal); R00.2 Palpitations; F33.1 Major depressive disorder, recurrent, moderate; Z87.891 Personal history of nicotine dependence; Z20.822 Contact with and (suspected) exposure to COVID-19; Z79.899 Other long term (current) drug therapy
CPT/HCPCS: 36415; 71045; 80048; 80076; 83735; 84443; 84484; 85025; 87635; 93005; 99283; 99284

== ENCOUNTER → 2022-05-20 13:16 | Outpatient (BNVA) | payer OTHER, SELFPAY | PROVIDERS: PCP Internal Medicine; Referring Provider Internal Medicine; Visit Provider Internal Medicine Cardiovascular Disease | DX: R00.2 Palpitations (principal) | CPT/HCPCS: 93005; 99202 ==

== ENCOUNTER → 2022-05-31 13:41 | Outpatient (REF) | payer OTHER, SELFPAY ==
--- NOTE | 2022-05-31 13:44 | HM_ITS ---
* Total monitoring time approximately 2 days. * Underlying rhythm is sinus. Average ventricular rate 76/Min. Range 56 to 137/Min. * Very rare supraventricular/ventricular ectopy. Minimal burden. * No significant pauses or AV blocks. * No patient markers. No diary submitted. MTDD
--- NOTE | 2022-05-31 13:44 | CA_ITS ---
Transthoracic Echocardiogram Patient (Last, First, Middle): Deyanira Fuentes, Gender: Female Date of : 1985 Age: 37 Procedure Date: 05/31/2022 Procedure Type: Transthoracic Echocardiogram Location: OP Height: 154.94 cm Weight: 75.75 kg BSA: 1.75 m2 Heart Rate: bpm BP: 112 / 74 mmHg Butcher Scullion: COURTNEY Referring MD: Murray Scott MD Symptoms: R00.2 - Palpitations Study Quality: Adequate ECG Rhythm: Sinus Conclusions: - The left ventricular systolic function is normal. The visually estimated ejection fraction is between 60-65%. - No obvious valvular pathology seen on this study. Findings Left Ventricle Normal left ventricular cavity size. There is normal left ventricular wall thickness. The left ventricular systolic function is normal. The visually estimated ejection fraction is between 60-65%. There is no evidence of regional wall motion abnormalities. Diastolic function is normal for age. LV peak GLS -19.7%. Right Ventricle Normal right ventricular cavity size and systolic function. Atria Both atria are normal in size. Aortic Valve There is a normal trileaflet aortic valve. There is no aortic valve stenosis. There is no aortic valve regurgitation. Mitral Valve The mitral valve appears normal. There is trace mitral valve regurgitation. There is no mitral valve stenosis. Pulmonic Valve The pulmonic valve is likely normal. Tricuspid Valve Normal tricuspid valve structure. There is trace tricuspid valve regurgitation. There is no evidence of pulmonary hypertension. Great Vessels The asc aorta is normal in size. Venous The inferior vena cava is normal in size and collapses less than 50% with inspiration. Pericardium/Pleural There is no evidence of pericardial effusion. Prior Study Comparison No prior study available for comparison. Recommendations, Care & Conclusions No obvious valvular pathology seen on this study. Measurements 2D Linear Measurements IVSd: 0.89 0.6-0.9/0.6-1.0 cm LVIDd: 4.37 3.9-5.3/4.2-5.9 cm LVIDd Index: 2.50 2.4-3.2/2.2-3.1 cm/m2 LVIDs: 2.97 2.0-3.6 cm LVPWd: 1.01 0.7-1.1 cm LA Diam: 3.70 2.7-3.8/3.0-4.0 cm LAIDs Index: 2.11 1.5-2.3 cm/m2 LV Mass: 169.44 67-162/88-224 g LV Mass Index: 96.82 43-95/49-115 g/m2 LVOT Diam: 2.00 3.0+(-)1.3 cm 2D Systolic Function EF 4C: 68.30 >55% EF 2C: 69.40 >55% EF BiP: 69.40 >55% Mitral Valve MV Pk E: 1.03 MV PK A: 0.45 MV Decel Time: 230.00 E/A: 2.30 E'Lateral: 12.30 E'Medial: 7.07 E/E' Med: 14.60 E/E' Lat: 8.40 PHT: 68.00 MVA PHT: 3.24 Decel Bland: 4.46 Aortic Valve AoV Pk Orlando: 1.81 AoV Mn Orlando: 1.20 AoV VTI: 0.40 AoV Pk Grad: 13.00 Aov Mn Grad: 7.00 LM Cont.VTI: 2.01 LVOT LVOT Pk Orlando: 1.15 LVOT Mn [place]: 0.74 LVOT VTI: 0.26 LVOT Pk Grad: 5.00 LVOT Mn Grad: 3.00 LVOT Diam: 2.00 LVOT Area: 3.14 Diastolic Function MV Pk E: 1.03 MV Pk A: 0.45 E/A: 2.30 E'Medial: 7.07 E/E' Med: 14.60 E' Laterial: 12.30 E/E' Lat: 8.40 Right Ventricle TAPSE (mm): 22.80 TVS' Orlando: 10.70 Tricuspid Valve TR Pk Orlando: 1.49 TR Pk Grad: 9.00 RA Press: 8.00 RVSP: 17.00 Great Vessels Aorta Sinus of Valsalva: 2.80 2.0-3.[address] Ridge: 2.31 1.7-3.4 cm Ao Asc: 2.80 2.1-3.4 cm Ao Arch: 2.60 Updated in Other Vendor System with Status of Final Christian Carmona MD electronically signed on 06/01/2022 8:28:17 AM with status of Final
== END ==
LOC: HO.CARD 13:41
PROVIDERS: PCP Internal Medicine; Visit Provider Internal Medicine Cardiovascular Disease
DX: R00.2 Palpitations (principal)
CPT/HCPCS: 93225; 93306; 93356

== ENCOUNTER 2023-09-23 12:56 | Outpatient (AMB) | payer OTHER, SELFPAY ==
--- NOTE | 2023-09-23 12:54 | MHC.OFFWIV ---
Intake Vital Signs 09/23/23 12:57 Height 5 ft 2 in Weight 191 lb BMI 34.9 BP 126/78 Blood Pressure Location Lt brachial Position Sitting Pulse 110 H Pulse Source Pulse Oximeter Temp 98 F Temp Source Oral Pulse Oximetry (%) 99 Oxygen Delivery Method Room Air Intake Visit Reasons: Ongoing Rash on RT Hand Intake Note: Pt is here today for rash on RT hand. Pt states she was seen Tuesday at the urgent care on [address] and they mentioned poision Leslie Patient Tobacco Use Status: Former Tobacco user Allergies No Known Allergies Allergy (Verified 09/23/23 13:48) Medication List - Last Reconciled 09/23/23 by Rosita Mejia CNP lidocaine 5% (Lidoderm) 1 patch topical DAILY PRN MDD remove after 12 hours naproxen 500 mg PO BID PRN 10 days PNV cmb#95-ferrous fumarate-FA 28 mg iron- 800 mcg () 1 tab PO DAILY Do you need a note to return to daycare/school/sports/work: No HPI HPI Comments History of Present Illness Details 38-year-old female seen today for c/o rash on right wrist, seen at Urgent care on [facility] on Tuesday and was told she had poison Leslie and treated with hydrocortisone cream with no relief. She reports roughly 2 weeks ago she had a scab on her right wrist that she picked and then next day woke up with right wrist and arm redness, swelling and pain. She denies trauma or injury to right wrist lower forearm, denies known bug bite, fever, chills, CP, SOB, dizziness, abdominal pain, nausea, vomiting, changes in bowels or bladder. [facility] Medical History Irregular menses Generalized anxiety disorder History of recurrent miscarriages Gallbladder polyp IBS (irritable bowel syndrome) Vaccine refused by patient Annual visit for general adult medical examination with abnormal findings Anxiety and depression Surgical History No pertinent past surgical history Family History Father Substance use disorder Diabetes mellitus Mother Substance use disorder Mental health disorder Maternal Aunt Substance use disorder Maternal Grandfather Substance use disorder Brother Substance use disorder Mental health disorder Sister Mental health disorder Sister Mental health disorder Social History Housing: House Patient Tobacco Use Status: Former Tobacco user Tobacco use type: Cigarette Cigarettes Per Day: 3 e-Cigarette/Vaping Use: Never Used service: No Current occupational status: employed Cognitive needs: No Hearing needs: No Vision needs: No Review of Systems Const All systems reviewed & are unremarkable except as noted in HPI and below Physical Exam Vital Signs: Last Vital Signs Temp 98 F 09/23/23 12:57 Pulse 110 H 09/23/23 12:57 BP 126/78 09/23/23 12:57 Pulse Ox 99 09/23/23 12:57 Oxygen Delivery Method Room Air 09/23/23 12:57 BMI result Body Mass Index 34.9 Const General: healthy appearing Orientation/consciousness: patient oriented x3 Limitations: no limitations Resp Effort & Inspection: normal respiratory effort, no cough and no respiratory distress Auscultation: clear to auscultation bilaterally Cardio Rate: regular rate Rhythm: regular rhythm Heart sounds: S1 normal heart sound present and S2 normal heart sound present Peripheral pulses: Peripheral pulses 2+ throughout GI Palpation (GI): Soft to palpation and nontender Auscultation: normal bowel sounds Neuro General: patient oriented x3 Extrem Right upper extremity: wrist (and lateral forearm w/ moderate erythema, edema, and moderate warmth. ) Psych Appearance: well kempt Mental Status: mental status grossly normal Affect: normal affect Attitude: cooperative Assessment & Plan Assessment & Plan (1) Cellulitis of right forearm: Code(s): L03.113 - Cellulitis of right upper limb Plan: 38-year-old female with right wrist lateral forearm cellulitis Will treat w/ Cefuroxime 500 mg po bid x 7 days, encouraged to take w/ food or milk to reduce GI upset. Moist warm compresses to affected area for swelling and discomfort, also encouraged to elevate right arm while awake Return to clinic with worsening or unresolved symptoms, and or follow up with PCP Medications: New cefuroxime axetil 500 mg PO BID 14 tabs 0RF 7 days L03.113 - Cellulitis of right upper limb Coding Level of Care Code Est Pt Level 3 (95279) Diagnoses Cellulitis of right forearm L03.113
[2023-09-23 12:57] VITALS: BP 126/78; PULSE 110; TEMP 36.6; O2SAT 99; BMI 34.9
== END 2023-09-23 13:57 | disposition home or self-care (01) ==
PROVIDERS: PCP Internal Medicine; Visit Provider Nurse Practitioner Acute Care
DX: L03.113 Cellulitis of right upper limb (principal)
CPT/HCPCS: 99213

== ENCOUNTER 2024-01-05 14:38 | Outpatient (AMB) | payer OTHER, SELFPAY ==
[2024-01-05 15:03] VITALS: BP 102/80; PULSE 78; O2SAT 98; BMI 31.8
--- NOTE | 2024-01-05 15:03 | A.OFFPC_ITS ---
Vital Signs 01/05/24 15:03 Height 5 ft 2 in Weight 174 lb BMI 31.8 BP 102/80 Blood Pressure Location Lt brachial Position Sitting Pulse 78 Pulse Source Pulse Oximeter Pulse Oximetry (%) 98 Oxygen Delivery Method Room Air Intake Visit Reasons: PHQ9/THRIVE - see comments Intake Note: Pt is here today for her PE: last papsmear 06/02/22 Allergies No Known Allergies Allergy (Verified 01/05/24 15:42) Medication List - Last Reconciled 01/05/24 by Nellie Turner MD No Known Home Meds Tobacco use date assessed: 01/05/24 Dental Screening Dental Screen Date: 01/05/24 Did you have a dental visit in the last 12 months?: Yes Did you have a dental problem in the last 6 months where you did not have access to dental care?: Yes Was dental information given to patient?: Patient has dentist HPI PHQ9/THRIVE - see comments HPI Details 38-year-old lady with no significant pas t medical history, here today for physical exam. She is up-to-date with her cervical cancer screening and pelvic exam, goes to [facility]', with last Pap smear done 06/02/2022 showing negative results, negative for HPV . Sje is currently 3 weeks [facility] Medical History (Updated 01/08/24 @ 20:33 by Nellie Turner MD) Irregular menses History of recurrent miscarriages Gallbladder polyp IBS (irritable bowel syndrome) Vaccine refused by patient Annual visit for general adult medical examination with abnormal findings Surgical History No pertinent past surgical history Family History Father Substance use disorder Diabetes mellitus Mother Substance use disorder Mental health disorder Maternal Aunt Substance use disorder Maternal Grandfather Substance use disorder Brother Substance use disorder Mental health disorder Sister Mental health disorder Sister Mental health disorder Social History Housing: House Patient Tobacco Use Status: Former Tobacco user Tobacco use type: Cigarette Cigarettes Per Day: 3 e-Cigarette/Vaping Use: Never Used service: No Current occupational status: employed Cognitive needs: No Hearing needs: No Vision needs: No Questionnaire PHQ-9 Over the last 2 weeks, how often have you been bothered by any of the following problems? 1. Little interest or pleasure in doing things: not at all 2. Feeling down, depressed, or hopeless: not at all 3. Trouble falling or staying asleep, or sleeping too much: not at all 4. Feeling tired or having little energy: more than half the days 5. Poor appetite or overeating: several days 6. Feeling bad about yourself - or that you are a failure or have let yourself or your family down: not at all 7. Trouble concentrating on things, such as reading the newspaper or watching television: several days 8. Moving or speaking so slowly that other people could have noticed. Or the opposite - being so fidgety or restless that you have been moving around a lot more than usual: not at all 9. Thoughts that you would be better off or of hurting yourself in some way: not at all Total score: 4 Depression Screening Interpretation: Negative Depression Screening Done: Yes 22694 - PHQ-9 Billing: Yes Source: Developed by Drs. Temo Mathis, Yaz Kahn, Gurinder Cast and colleagues, with an educational florian from [employer]. Thrive Questionnaire Date Thrive assessed: 01/05/24 I am a: Patient What is your living situation today?: I have a steady place to live Within the past 12 months, did the food you bought not last and you didn't have the money to get more?: Never true Within the past 12 months, did you worry whether your food would run out before you got money to buy more?: Never true Do you have trouble paying for medicines?: No Do you have trouble getting transportation to medical appointments?: No Do you have trouble paying your heating and electricity bill?: Yes Do you have trouble taking care of your child, family member or friend?: No Do you have trouble with day-to-day activities such as bathing, preparing meals, shopping, managing finances, etc.?: No Are you interested in more education?: No Please select the resources that you would like help with: None Currently or been in a relationship where the following occur: I choose not to answer THRIVE Score: 1 AUDIT C Alcohol Use Questionnaire (AUDIT-C) 1. How often do you have a drink containing alcohol?: Monthly or less 2. How many drinks containing alcohol do you have on a typical day when you are drinking?: 3 or 4 3. How often do you have six or more drinks on one occasion?: Never Total Score: 2 CRISTIAN-7 AMB Questionnaire CRISTIAN-7 Date CRISTIAN - 7 assessed: 01/05/24 Feeling nervous, anxious, or on edge: 1 = Several days Not being able to stop or control worryin = Several days Worrying too much about different things: 1 = Several days Trouble relaxin = Several days Being so restless that it is hard to sit still: 0 = Not at all Becoming easily annoyed or irritable: 1 = Several days Feeling afraid as if something awful might happen: 1 = Several days Total CRISTIAN-7 score (0-4 normal; 5-9 mild; 10-14 moderate; 15-21 severe): 6 Source: Developed by Drs. Temo Mathis, Yaz Kahn, Gurinder Cast and colleagues, with an educational florian from [employer]. CRISTIAN-7 Assessment Billing CRISTIAN-7 Assessment Tool: CRISTIAN-7 Assessment 33286 Review of Systems Const Reports no additional complaints ENT Reports no additional complaints Card Denies chest pain, Denies rapid heart rate, Denies irregular heart rhythm and Denies dyspnea Resp Denies cough and Denies dyspnea GI Reports no additional complaints Denies nipple discharge Musc Reports no additional complaints Skin/Breast Denies breast pain, Denies breast mass, Denies nipple discharge and Denies rash Neuro Reports no additional complaints Psych Reports no additional complaints Endo Reports no additional complaints Patrice/Lymph Reports no additional complaints Aller/Immun Reports no additional complaints Physical exam (Primary Care) Vital Signs: Last Vital Signs Pulse 78 01/05/24 15:03 BP 102/80 01/05/24 15:03 Pulse Ox 98 01/05/24 15:03 Oxygen Delivery Method Room Air 01/05/24 15:03 BMI result Body Mass Index 31.8 Tobacco/Smoking Status: Tobacco use Status Tobacco use date assessed 01/05/24 01/05/24 15:05 Patient Tobacco Use Status Former Tobacco user 01/05/24 15:05 Tobacco use type Cigarette 01/05/24 15:05 e-Cigarette/Vaping Use Never Used 01/05/24 15:05 PHQ-9: PHQ-9 Score PHQ-9: Total score 4 01/05/24 15:56 Depression Screening Interpretation: Negative Thrive Assessment: Date of Thrive Assessment Date Thrive assessed 01/05/24 01/05/24 15:05 Currently or been in a relationship where the following occur: I choose not to answer Const General: comfortable, no acute distress and alert Orientation/consciousness: patient oriented x3 HENMT Mouth: Normal oral and palatal mucosa present and moist mucous membranes Neck Neck: Yes full ROM, Yes no lymphadenopathy and Yes supple Thyroid: Thyroid normal Chest Chest palpation & inspection: normal inspection of the chest Breast/axilla palpation: normal palpation of the breasts Resp Auscultation: clear to auscultation bilaterally Cardio Other: S1-S2 present regular rate and rhythm GI Inspection: Yes normal to inspection Palpation (GI): Soft to palpation, nontender, no guarding and no masses Auscultation: normal bowel sounds General: Yes no CVA tenderness and Yes deferred Back/Spine/Pelvis Back: no CVA tenderness and No back tenderness Skin General skin exam: no rashes or lesions noted Neuro General: patient oriented x3, gait normal, moves all extremities, Normal light touch and pain sensation, no focal motor deficits and CN's II-XI intact bilaterally Extrem General: Yes normal to inspection, Yes full ROM, Yes no joint enlargement, Yes no pedal edema and Yes normal gait Psych Appearance: grossly normal and well kempt Mental Status: mental status grossly normal Speech and movement: Normal speech and movement present Affect: normal affect Attitude: cooperative Thought process: Normal thought process present Thought content: Normal thought content present Assessment and Plan Assessment & Plan (1) Annual visit for general adult medical examination with abnormal findings: Code(s): Z00.01 - Encounter for general adult medical examination with abnormal findings Plan: Will check appropriate labs. Recommended dental visit every 6 months and regular eye exams, at least every 2 years. Take adequate calcium in diet and vitamin-D 3 at 2000 IU per cap once a day, in addition to weight-bearing exercises to help maintain good muscle tone and weight control. Instructed to do self-breast exam, and start yearly mammogram at age 40. Patient declines vaccine (2) Vaccine refused by patient: Code(s): Z28.20 - Immunization not carried out because of patient decision for unspecified reason (3) Encounter for counseling regarding advance directives: Code(s): Z71.89 - Other specified counseling Plan: Initiated the conversation about Advanced Directives. Advanced Directives help patients prepare for current and future decisions about their medical treatment and place of care. Discussed with patient that it is a process where a patients current condition and prognosis are reviewed, their wishes for information regarding their illness are elicited, and likely medical dilemmas are presented and options discussed. The form can be amended as needed, reviewed yearly and make changes as needed (4) History of anemia: Code(s): Z86.2 - Personal history of diseases of the blood and blood-forming organs and certain disorders involving the immune mechanism Plan: Ordered a CBC Orders: Orders Lipid Panel 01/05/24 K75.81 - Nonalcoholic steatohepatitis (BRODY), Z13.1 - Encounter for screening for diabetes mellitus, Z13.220 - Encounter for screening for lipoid disorders, Z28.20 - Immunization not carried out because of patient decision for unspecified reason Vitamin D 25-OH Total 01/05/24 K75.81 - Nonalcoholic steatohepatitis (BRODY), Z13.1 - Encounter for screening for diabetes mellitus, Z13.220 - Encounter for screening for lipoid disorders, Z28.20 - Immunization not carried out because of patient decision for unspecified reason TSH reflex Free T4 01/05/24 K75.81 - Nonalcoholic steatohepatitis (BRODY), Z13.1 - Encounter for screening for diabetes mellitus, Z13.220 - Encounter for screening for lipoid disorders, Z28.20 - Immunization not carried out because of patient decision for unspecified reason UA CC w/rflx Micro + Cult 01/05/24 K75.81 - Nonalcoholic steatohepatitis (BRODY), Z13.1 - Encounter for screening for diabetes mellitus, Z13.220 - Encounter for screening for lipoid disorders, Z28.20 - Immunization not carried out because of patient decision for unspecified reason Complete Blood Count Auto Diff 01/05/24 K75.81 - Nonalcoholic steatohepatitis (BRODY), Z00.01 - Encounter for general adult medical examination with abnormal findings, Z13.1 - Encounter for screening for diabetes mellitus, Z13.220 - Encounter for screening for lipoid disorders, Z28.20 - Immunization not carried out because of patient decision for unspecified reason, Z71.89 - Other specified counseling, Z86.2 - Personal history of diseases of the blood and blood-forming organs and certain disorders involving the immune mechanism Basic Metabolic Panel Fasting 01/05/24 K75.81 - Nonalcoholic steatohepatitis (BRODY), Z13.1 - Encounter for screening for diabetes mellitus, Z13.220 - Encounter for screening for lipoid disorders, Z28.20 - Immunization not carried out because of patient decision for unspecified reason Coding Level of Care Code Est Pt Prev Care 18-39y(64235) Diagnoses Annual visit for general adult medical examination with abnormal findings Z00.01 Vaccine refused by patient Z28.20 Encounter for counseling regarding advance directives Z71.89 History of anemia Z86.2 Additional Codes CRISTIAN-7 Assessment Billing - CRISTIAN-7 Assessment Tool: CRISTIAN-7 Assessment [id number] ([id number])
== END 2024-01-05 16:53 | disposition home or self-care (01) ==
PROVIDERS: PCP Internal Medicine; Visit Provider Internal Medicine
DX: Z00.01 Encounter for general adult medical examination with abnormal findings (principal); Z28.20 Immunization not carried out because of patient decision for unspecified reason; Z71.89 Other specified counseling; Z86.2 Personal history of diseases of the blood and blood-forming organs and certain disorders involving the immune mechanism

== ENCOUNTER → 2024-01-05 14:38 | Outpatient (BNVA) | payer OTHER, SELFPAY | PROVIDERS: PCP Internal Medicine; Visit Provider Internal Medicine | DX: Z00.01 Encounter for general adult medical examination with abnormal findings (principal); Z28.20 Immunization not carried out because of patient decision for unspecified reason; Z71.89 Other specified counseling; Z86.2 Personal history of diseases of the blood and blood-forming organs and certain disorders involving the immune mechanism | CPT/HCPCS: 96127; 99395 ==

== ENCOUNTER 2024-12-11 13:25 | Outpatient (REF) | payer OTHER, SELFPAY ==
[2024-12-11 16:15] LABS: MANUAL DIFF FLAG NO
[2024-12-11 16:26] LABS: Hematocrit 40.8 % (37.0-47.0); Hemoglobin 13.0 g/dl (12.0-16.0); Imm Gran Abs Auto 0.03 X10*3/uL (0.00-0.03); Imm Gran Pct Auto 0.3 % (0.0-0.4); Lymphocytes Absolute Auto 2.9 X10*3/uL (1.2-4.9); Mean Corpuscular HGB Conc 31.9 g/dl (31.0-35.0); Mean Corpuscular Hemoglobin 26.1 pg (27.0-33.0); Mean Corpuscular Volume 81.8 fL (80.0-98.0); NRBC Abs Auto 0.000 X10*3/uL (0.0-0.012); NRBC Pct Auto 0.0 /100WBC (0.0-0.2); Platelet Count 326 X10*3/uL (160-400); Red Blood Count 4.99 X10*6/uL (4.20-5.50); White Blood Count 9.3 X10*3/uL (4.8-10.8)
[2024-12-11 16:43] LABS: Anion Gap 11 (12-20); Blood Urea Nitrogen 12 mg/dL (9-16); Calcium 9.8 mg/dL (8.4-10.2); Carbon Dioxide 24 mmol/L (22-29); Chloride 106 mmol/L (96-108); Cholesterol 161 mg/dL (<200); Estimated Glomerular Filt Rate > 60; HDL Cholesterol 51 mg/dL (>40); Potassium 4.3 mmol/L (3.3-5.1); Sodium 137 mmol/L (135-145); Triglycerides 105 mg/dL (<150)
== END 2024-12-11 13:26 | disposition home or self-care (01) ==
LOC: HO.HMGCLDS 13:25
PROVIDERS: PCP Internal Medicine; Visit Provider Internal Medicine
DX: Z00.01 Encounter for general adult medical examination with abnormal findings (principal); K75.81 Nonalcoholic steatohepatitis (NASH); Z13.220 Encounter for screening for lipoid disorders; Z13.1 Encounter for screening for diabetes mellitus; M54.6 Pain in thoracic spine; R10.9 Unspecified abdominal pain; Z71.89 Other specified counseling; Z86.2 Personal history of diseases of the blood and blood-forming organs and certain disorders involving the immune mechanism; Z28.20 Immunization not carried out because of patient decision for unspecified reason
CPT/HCPCS: 36415; 80048; 80061; 81003; 82306; 84443; 85025; 99212

== ENCOUNTER 2024-12-11 13:25 | Outpatient (AMB) | payer OTHER, SELFPAY ==
--- NOTE | 2024-12-11 14:15 | MHC.OFFWIV ---
Intake Vital Signs 12/11/24 14:16 Height 5 ft 2 in Weight 182 lb BMI 33.3 BP 110/72 Blood Pressure Location Rt brachial Position Sitting Pulse 94 Pulse Source Pulse Oximeter Temp 99.2 F Temp Source Oral Pulse Oximetry (%) 100 Oxygen Delivery Method Room Air Intake Visit Reasons: EP- sharp backpain Intake Note: pt presents with bilateral flank shooting pain, urine frequency, pressure in low abdomen Patient Tobacco Use Status: Former Tobacco user Allergies No Known Allergies Allergy (Verified 12/11/24 14:22) Do you need a note to return to daycare/school/sports/work: No HPI HPI Comments History of Present Illness Details This is a 39-year-old female with a past medical history of recurrent UTIs presenting for evaluation of bilateral flank pain and urinary frequency over the past 1-2 weeks. Patient states she was most recently treated for a urinary tract infection approximately 2 months ago. Patient reports her bilateral flank pain as a sharp and aching sensation. She denies having any fevers, chills, abdominal pain, dysuria or vaginal discharge. She has not taken any medication for treatment of her discomfort. Additionally, patient denies having any recent injuries or trauma to her back. Patient states that she has been referred to urology by her assistant manager pt for management of her symptoms however has not had an intake with Urology to date. [facility] Medical History (Updated 12/11/24 @ 15:06 by Leonor Calderon PA-C) Irregular menses History of recurrent miscarriages Gallbladder polyp IBS (irritable bowel syndrome) Vaccine refused by patient Annual visit for general adult medical examination with abnormal findings Surgical History No pertinent past surgical history Family History Father Substance use disorder Diabetes mellitus Mother Substance use disorder Mental health disorder Maternal Aunt Substance use disorder Maternal Grandfather Substance use disorder Brother Substance use disorder Mental health disorder Sister Mental health disorder Sister Mental health disorder Social History Housing: House Patient Tobacco Use Status: Former Tobacco user Tobacco use type: Cigarette Cigarettes Per Day: 3 e-Cigarette/Vaping Use: Never Used service: No Current occupational status: employed Cognitive needs: No Hearing needs: No Vision needs: No Review of Systems Const All systems reviewed & are unremarkable except as noted in HPI and below Denies body aches, Denies chills, Denies fatigue and Denies fever(s) GI Denies constipation, Denies GI cramping, Denies diarrhea, Denies nausea and Denies vomiting Reports flank pain (Bilateral flank pain) and Reports urinary urgency Musc Reports no additional complaints, Reports back pain and Denies myalgias Skin/Breast Reports system reviewed and no additional complaints, except as documented Neuro Reports no additional complaints Psych Reports no additional complaints Endo Denies fatigue Physical Exam Vital Signs: Last Vital Signs Temp 99.2 F 12/11/24 14:16 Pulse 94 12/11/24 14:16 BP 110/72 12/11/24 14:16 Pulse Ox 100 12/11/24 14:16 Oxygen Delivery Method Room Air 12/11/24 14:16 BMI result Body Mass Index 33.3 Const General: cooperative, healthy appearing, comfortable, no acute distress, well developed, alert, awake and Physically active; No acute distress Nutritional Appearance: average body habitus Orientation/consciousness: patient oriented x3 Limitations: no limitations GI Inspection: No distended Palpation (GI): Soft to palpation, nontender and no guarding Auscultation: normal bowel sounds General: Yes Bimanual renal exam normal bilaterally, Yes bladder normal to palpation and Yes no CVA tenderness Bimanual exam- vagina & uterus: bladder normal to palpation Back/Spine/Pelvis Back: no CVA tenderness Thoracic/Lumbar Spine: thoracic and lumbar spine normal to inspection, paraspinal muscle tenderness on the right greater than left (lower thoracic; no guarding), No thoraco-lumbar spasm, No thoracic spinal tenderness and No lumbar spinal tenderness Skin General skin exam: no rashes or lesions noted Neuro General: patient oriented x3 Psych Appearance: grossly normal Mental Status: mental status grossly normal Insight: Good insight present (Psych) Judgement: Good judgement present (Psych) Results Reviewed Results Reviewed: Urinalysis is reviewed and is not consistent with an acute urinary tract infection. Assessment & Plan Assessment & Plan (1) Flank pain: Comment: Patient has bilateral lower thoracic paraspinous muscular tenderness and no overt CVAT. Patient's urinalysis is not consistent with an acute urinary tract infection and she has no suprapubic tenderness upon abdominal examination. Patient will follow up with her primary care provider regarding a referral to Urology as this has not yet occurred through her assistant manager pt. Code(s): R10.9 - Unspecified abdominal pain Plan: Naprosyn 500 mg b.i.d. times 7-10 days. Patient will follow up with her primary care physician regarding a referral to urology regarding her current concerns. Medications: New naproxen (Naprosyn) 500 mg PO BID 20 tabs 0RF Coding Level of Care Code Est Pt Level 3 (16727) Diagnoses Flank pain R10.9 Time Spent (min) 20
[2024-12-11 14:16] VITALS: BP 110/72; PULSE 94; TEMP 37.3; O2SAT 100; BMI 33.3
--- OUTSIDE RECORDS SUMMARY | 2024-12-11 14:19 | XMS_ITS | Clinical Summary ---
Author Organization [facility] Address [address] [place] [id number] Phone Care Team Providers Care Rubber Tester Name Role Phone Unavailable Primary Care Provider Unavailabl e Immunizations Immunization Administration Dates Next Due DTP 04/17/1997, 5,05/18/1994,1989,07/16/1989 Hep B, ped/adol 05/31/2001,01/22/2000 IPV 04/17/1997, 5,05/18/1994,1989 MMR 04/17/1997,07/16/1989 Td (adult) (MBL), 2 Lf tetan us toxoid, PF, adsorbed 01/22/2000 Social History Tobacco Use Types Packs/Day Years Used Date Smoking Tobacco: Never Assessed Comments Unknown Sex and Gender Information Value Date Recorded Sex Assigned at Not on file Legal Sex Female 3:25 PM EDT Gender Identity Not on file Sexual Orientation Not on file Plan of Treatment Health Maintenance Due Date Last Done Comments Varicella Vaccines (1 of 2 - 13+ 2-dose series) 05/15/1997 Hepatitis B Vaccines (3 of 3 - 3-dose series) 07/26/2001 05/31/2001, 01/22/2000 DTaP,Tdap,and Td Vaccines (7 - Tdap) 01/21/2010 01/22/2000, 04/17/1997, 11/15/1994, Additional history exists HPV Vaccines (1 - 3-dose SCDM series) 2011 COVID-19 Vaccine ( season) 2023 Influenza Vaccines (#1) 2024 IPV Vaccines Completed 04/17/1997, 10/18, 05/18/1994, Additional history exists MMR Vaccines Completed 04/17/1997, 07/16/1989 HIB Vaccines Aged Out No longer eligi ble based on patient's age to complete this topic Hepatitis A Vaccines Aged Out No long er eligible based on patient's age to complete this topic Men B Vaccine Aged Out No longer elig ible based on patient's age to complete this topic Meningococcal Vaccine Aged Out No luiz caroline eligible based on patient's age to complete this topic Pneumococcal Vaccine Aged Out No long er eligible based on patient's age to complete this topic
== END 2024-12-11 15:20 | disposition home or self-care (01) ==
PROVIDERS: PCP Internal Medicine; Visit Provider Physician Assistant
DX: R10.9 Unspecified abdominal pain (principal); Z13.9 Encounter for screening, unspecified

== ENCOUNTER 2024-12-11 14:26 | Outpatient (REF) | payer OTHER, SELFPAY ==
[2024-12-11 17:09] LABS: Appearance Urine Clear; Glucose Urine UA Negative (Negative); PH 6.0 (5.0-9.0); Specific Gravity - Urine 1.010 (1.005-1.025)
== END 2024-12-11 14:27 | disposition home or self-care (01) ==
LOC: HO.LNP 14:26
PROVIDERS: Visit Provider Internal Medicine
DX: K75.81 Nonalcoholic steatohepatitis (NASH) (principal); Z28.20 Immunization not carried out because of patient decision for unspecified reason; Z13.220 Encounter for screening for lipoid disorders; Z13.1 Encounter for screening for diabetes mellitus
CPT/HCPCS: 81003

== ENCOUNTER 2024-12-14 08:25 | Outpatient (AMB) | payer OTHER, SELFPAY ==
--- NOTE | 2024-12-14 08:33 | MHC.PC.OV ---
Intake Visit Reasons: urine incontinence requesting referral Iphone Allergies No Known Allergies Allergy (Verified 12/14/24 08:51) Medication List - Last Reconciled 12/14/24 by Nellie Turner MD mirabegron ER 25 mg PO DAILY naproxen (Naprosyn) 500 mg PO BID Tobacco use date assessed: 12/14/24 Dental Screening Dental Screen Date: 12/14/24 Did you have a dental visit in the last 12 months?: Yes Did you have a dental problem in the last 6 months where you did not have access to dental care?: No Was dental information given to patient?: Patient has dentist HPI urine incontinence requesting referral Iphone HPI Details - The patient is a 39-year-old female presenting with urinary incontinence - Urinary incontinence has been ongoing since childbirth a year ago, characterized by constant leakage of urine, denies any mass felt inside vaginal vault - The patient states that she did not receive a pelvic examination despite multiple requests. - She was advised to perform pelvic floor exercises, which have not alleviated the symptoms. - Reports of discomfort and back pain were investigated had a recent walk-in clinic visit, with urinalysis returning negative results. [facility] Medical History (Updated 12/14/24 @ 08:53 by Nellie Turner MD) Mixed stress and urge urinary incontinence Irregular menses History of recurrent miscarriages Gallbladder polyp IBS (irritable bowel syndrome) Vaccine refused by patient Annual visit for general adult medical examination with abnormal findings Surgical History No pertinent past surgical history Family History Father Substance use disorder Diabetes mellitus Mother Substance use disorder Mental health disorder Maternal Aunt Substance use disorder Maternal Grandfather Substance use disorder Brother Substance use disorder Mental health disorder Sister Mental health disorder Sister Mental health disorder Social History Housing: House Patient Tobacco Use Status: Former Tobacco user Tobacco use type: Cigarette Cigarettes Per Day: 3 e-Cigarette/Vaping Use: Never Used service: No Current occupational status: employed Cognitive needs: No Hearing needs: No Vision needs: No Questionnaire PHQ-9 Over the last 2 weeks, how often have you been bothered by any of the following problems? 1. Little interest or pleasure in doing things: not at all 2. Feeling down, depressed, or hopeless: not at all 3. Trouble falling or staying asleep, or sleeping too much: not at all 4. Feeling tired or having little energy: more than half the days 5. Poor appetite or overeating: several days 6. Feeling bad about yourself - or that you are a failure or have let yourself or your family down: not at all 7. Trouble concentrating on things, such as reading the newspaper or watching television: several days 8. Moving or speaking so slowly that other people could have noticed. Or the opposite - being so fidgety or restless that you have been moving around a lot more than usual: not at all 9. Thoughts that you would be better off or of hurting yourself in some way: not at all Total score: 4 Depression Screening Interpretation: Negative Depression Screening Done: Yes 89318 - PHQ-9 Billing: Yes Source: Developed by Drs. Temo Mathis, Yaz Kahn, Gurinder Cast and colleagues, with an educational florian from [employer]. Thrive Questionnaire Date Thrive assessed: 12/14/24 I am a: Patient What is your living situation today?: I have a steady place to live Within the past 12 months, did the food you bought not last and you didn't have the money to get more?: Never true Within the past 12 months, did you worry whether your food would run out before you got money to buy more?: Never true Do you have trouble paying for medicines?: No Do you have trouble getting transportation to medical appointments?: No Do you have trouble paying your heating and electricity bill?: Yes Do you have trouble taking care of your child, family member or friend?: No Do you have trouble with day-to-day activities such as bathing, preparing meals, shopping, managing finances, etc.?: No Are you interested in more education?: No Please select the resources that you would like help with: None Currently or been in a relationship where the following occur: I choose not to answer THRIVE Score: 1 AUDIT C Alcohol Use Questionnaire (AUDIT-C) 1. How often do you have a drink containing alcohol?: Monthly or less 2. How many drinks containing alcohol do you have on a typical day when you are drinking?: 1 or 2 3. How often do you have six or more drinks on one occasion?: Never Total Score: 1 Score Reviewed/Action Taken: Yes CRISTIAN-7 AMB Questionnaire CRISTIAN-7 Date CRISTIAN - 7 assessed: 12/14/24 Feeling nervous, anxious, or on edge: 1 = Several days Not being able to stop or control worryin = Several days Worrying too much about different things: 1 = Several days Trouble relaxin = Several days Being so restless that it is hard to sit still: 0 = Not at all Becoming easily annoyed or irritable: 1 = Several days Feeling afraid as if something awful might happen: 1 = Several days Total CRISTIAN-7 score (0-4 normal; 5-9 mild; 10-14 moderate; 15-21 severe): 6 Source: Developed by Drs. Temo Mathis, Yaz Kahn, Gurinder Cast and colleagues, with an educational florian from [employer]. CRISTIAN-7 Assessment Billing CRISTIAN-7 Assessment Tool: CRISTIAN-7 Assessment 49308 Review of Systems Const All systems reviewed & are unremarkable except as noted in HPI and below Physical exam (Primary Care) Tobacco/Smoking Status: Tobacco use Status Tobacco use date assessed 12/14/24 12/14/24 08:35 Patient Tobacco Use Status Former Tobacco user 12/14/24 08:35 Tobacco use type Cigarette 12/14/24 08:35 e-Cigarette/Vaping Use Never Used 12/14/24 08:35 PHQ-9: PHQ-9 Score PHQ-9: Total score 4 12/14/24 08:48 Depression Screening Interpretation: Negative Thrive Assessment: Date of Thrive Assessment Date Thrive assessed 12/14/24 12/14/24 08:35 Currently or been in a relationship where the following occur: I choose not to answer Telehealth Telehealth Telehealth Platform: [facility] Location of provider rendering services: practice address Location of patient: address on file Patient Identification confirmed using: Name, : Yes Telehealth method: video Patient verbally consented to treatment: Yes Patient verbally consented to billing insurance company: Yes Patient informed of any privacy concerns related to visit: Yes Minutes spent on Phone/Video with Pt.: 15 Coding Level of Care Code Tele Est Pt Level 3 (28336) Diagnoses Mixed stress and urge urinary incontinence N39.46 Additional Codes CRISTIAN-7 Assessment Billing - CRISTIAN-7 Assessment Tool: CRISTIAN-7 Assessment 93806 ([id number]) PHQ-9 - 51265 - PHQ-9 Billing: Yes ([id number]) Assessment & Plan Assessment & Plan (1) Mixed stress and urge urinary incontinence: Code(s): N39.46 - Mixed incontinence Category: Medical Plan: I discussed with the patient the plan to refer her to a urogynecologist for further evaluation of her urinary incontinence. In the meantime, I prescribed Mirabegron 25 mg extended-release to help manage her symptoms. We also discussed the possibility of a urinary tract infection and advised her to monitor her symptoms and return if they persist. I informed her that if she does not hear from us about the urology appointment by the end of next week, she should let us know so we can follow-up on that referral Plan Patient was informed and verbally consented to the use of an ambient scribe for clinic note documentation during this visit. Medications: New mirabegron ER 25 mg PO DAILY 30 tabs 0RF
--- OUTSIDE RECORDS SUMMARY | 2024-12-14 09:11 | XMS_ITS | Clinical Summary ---
Author Organization [facility] Address [address] [place] [id number] Phone Care Team Providers Care Tank Erector Name Role Phone Unavailable Primary Care Provider [...]
== END 2024-12-14 09:51 | disposition home or self-care (01) ==
LOC: HO.HMCC 08:26
PROVIDERS: PCP Internal Medicine; Visit Provider Internal Medicine
DX: N39.46 Mixed incontinence (principal)

== ENCOUNTER → 2024-12-14 08:25 | Outpatient (BNVA) | payer OTHER, SELFPAY | PROVIDERS: PCP Internal Medicine; Visit Provider Internal Medicine | DX: N39.46 Mixed incontinence (principal) | CPT/HCPCS: 96127 ==

== ENCOUNTER 2025-01-22 16:01 | Outpatient (AMB) | payer OTHER, SELFPAY ==
--- NOTE | 2025-01-22 16:05 | A.OFFPC_ITS ---
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 Is last menstrual period known: Yes Last menstrual period: 12/23/24 Allergies No Known Allergies Allergy (Verified 01/22/25 16:30) Medication List - Last Reconciled 01/22/25 by Nellie Turner MD mirabegron ER 25 mg PO DAILY naproxen (Naprosyn) 500 mg PO BID Tobacco use date assessed: 01/22/25 Dental Screening Dental Screen Date: 01/22/25 Did you have a dental visit in the last 12 months?: Yes Did you have a dental problem in the last 6 months where you did not have access to dental care?: Yes Was dental information given to patient?: Patient has dentist HPI Annual PE HPI Details 39-year-old lady with history of urinary incontinence, here today for her physical exam. She is overdue for her breast cancer screening, last mammogram was done in 2021 . She goes to [facility] for her cervical cancer screening with last Pap smear done 07/01/2023, negative for any intraepithelial lesion or malignancy and HPV negative She does not want to get any vaccines. Has recurrent upper back pain, which she attributes to her being large breasted. She also gets recurrent itchy rash under both breasts especially during the warmer months. Interested in getting breast reduction surgery [facility] Medical History (Updated 01/27/25 @ 23:03 by Nellie Turner MD) Dorsalgia of thoracic region Allergic rhinitis Mixed stress and urge urinary incontinence Irregular menses History of recurrent miscarriages Gallbladder polyp IBS (irritable bowel syndrome) Vaccine refused by patient Annual visit for general adult medical examination with abnormal findings Surgical History No pertinent past surgical history Family History Father Substance use disorder Diabetes mellitus Mother Substance use disorder Mental health disorder Maternal Aunt Substance use disorder Maternal Grandfather Substance use disorder Brother Substance use disorder Mental health disorder Sister Mental health disorder Sister Mental health disorder Social History Housing: House Patient Tobacco Use Status: Former Tobacco user Tobacco use type: Cigarette Cigarettes Per Day: 3 e-Cigarette/Vaping Use: Never Used service: No Current occupational status: employed Cognitive needs: No Hearing needs: No Vision needs: No Female Reproductive History Menstrual Date of last menstrual period: 12/23/24 Questionnaire PHQ-9 Over the last 2 weeks, how often have you been bothered by any of the following problems? 1. Little interest or pleasure in doing things: not at all 2. Feeling down, depressed, or hopeless: not at all 3. Trouble falling or staying asleep, or sleeping too much: not at all 4. Feeling tired or having little energy: several days 5. Poor appetite or overeating: not at all 6. Feeling bad about yourself - or that you are a failure or have let yourself or your family down: not at all 7. Trouble concentrating on things, such as reading the newspaper or watching television: several days 8. Moving or speaking so slowly that other people could have noticed. Or the opposite - being so fidgety or restless that you have been moving around a lot more than usual: not at all 9. Thoughts that you would be better off or of hurting yourself in some way: not at all Total score: 2 Depression Screening Interpretation: Negative Depression Screening Done: Yes Source: Developed by Drs. Temo Mathis, Yaz Kahn, Gurinder Cast and colleagues, with an educational florian from [employer]. Thrive Questionnaire Date Thrive assessed: 01/16/25 I am a: Patient What is your living situation today?: I have a steady place to live Within the past 12 months, did the food you bought not last and you didn't have the money to get more?: Sometimes True Within the past 12 months, did you worry whether your food would run out before you got money to buy more?: Sometimes True Do you have trouble paying for medicines?: No Do you have trouble getting transportation to medical appointments?: No Do you have trouble paying your heating and electricity bill?: Yes Do you have trouble taking care of your child, family member or friend?: No Do you have trouble with day-to-day activities such as bathing, preparing meals, shopping, managing finances, etc.?: No Are you currently unemployed and looking for a job?: No Are you interested in more education?: No Please select the resources that you would like help with: Housing/Long-Term and Utilities Currently or been in a relationship where the following occur: I choose not to answer THRIVE Score: 3 AUDIT C Alcohol Use Questionnaire (AUDIT-C) 1. How often do you have a drink containing alcohol?: Monthly or less Total Score: 1 CRISTIAN-7 AMB Questionnaire CRISTIAN-7 Date CRISTIAN - 7 assessed: 12/14/24 Feeling nervous, anxious, or on edge: 1 = Several days Not being able to stop or control worryin = Not at all Worrying too much about different things: 0 = Not at all Trouble relaxin = Several days Being so restless that it is hard to sit still: 1 = Several days Becoming easily annoyed or irritable: 1 = Several days Feeling afraid as if something awful might happen: 0 = Not at all Total CRISTIAN-7 score (0-4 normal; 5-9 mild; 10-14 moderate; 15-21 severe): 4 Source: Developed by Drs. Temo Mathis, Yaz Kahn, Gurinder Cast and colleagues, with an educational florian from [employer]. Review of Systems Const Reports no additional complaints Eyes Reports no additional complaints ENT Reports no additional complaints Card Denies chest pain, Denies rapid heart rate, Denies irregular heart rhythm and Denies dyspnea Resp Denies cough and Denies dyspnea GI Reports no additional complaints Details: [facility] Denies [facility] discharge Musc Reports as per HPI Skin/Breast Denies breast pain, Denies breast mass and Denies nipple discharge Neuro Reports no additional complaints Psych Reports no additional complaints Endo Reports no additional complaints Patrice/Lymph Reports no additional complaints Aller/Immun Reports no additional complaints Physical exam (Primary Care) Vital Signs: Last Vital Signs Temp 98.3 F 01/22/25 16:06 Pulse 69 01/22/25 16:06 Resp 16 01/22/25 16:06 BP 100/70 01/22/25 16:06 Pulse Ox 98 01/22/25 16:06 Oxygen Delivery Method Room Air 01/22/25 16:06 BMI result Body Mass Index 33.7 Tobacco/Smoking Status: Tobacco use Status Tobacco use date assessed 01/22/25 01/22/25 16:08 Patient Tobacco Use Status Former Tobacco user 01/22/25 16:08 Tobacco use type Cigarette 01/22/25 16:08 e-Cigarette/Vaping Use Never Used 01/22/25 16:08 PHQ-9: PHQ-9 Score PHQ-9: Total score 2 01/22/25 16:32 Depression Screening Interpretation: Negative Thrive Assessment: Date of Thrive Assessment Date Thrive assessed 01/16/25 01/22/25 16:08 Currently or been in a relationship where the following occur: I choose not to answer Const General: comfortable, no acute distress and alert Nutritional Appearance: obese Orientation/consciousness: patient oriented x3 Limitations: no limitations HENMT Mouth: Normal oral and palatal mucosa present and moist mucous membranes Eyes General: appearance normal, both eyes and all related structures Neck Neck: Yes full ROM, Yes no lymphadenopathy and Yes supple Thyroid: Thyroid normal Chest Other: large breasts Chest palpation & inspection: normal inspection of the chest Breast/axilla inspection: abnormal inspection of the breast Breast/axilla palpation: normal palpation of the breasts Resp Auscultation: clear to auscultation bilaterally Cardio Other: S1-S2 present regular rate and rhythm GI Inspection: Yes normal to inspection Palpation (GI): Soft to palpation, nontender, no guarding and no masses Auscultation: normal bowel sounds General: Yes no CVA tenderness and Yes deferred Back/Spine/Pelvis Other: Slight tenderness over interscapular area Back: no CVA tenderness Skin General skin exam: no rashes or lesions noted Neuro General: patient oriented x3, gait normal, moves all extremities, Normal light touch and pain sensation, no focal motor deficits and CN's II-XI intact bilaterally Extrem General: Yes normal to inspection, Yes full ROM, Yes no joint enlargement, Yes no pedal edema and Yes normal gait Psych Appearance: grossly normal and well kempt Mental Status: mental status grossly normal Speech and movement: Normal speech and movement present Affect: normal affect Attitude: cooperative Thought process: Normal thought process present Thought content: Normal thought content present Results Reviewed Results Reviewed: Name: Deyanira Fuentes Age/Sex: 39/F : 1985 Unit#: [id number] Attend Dr: Nellie Turner MD Re12/11/24 Status: DEP [facility] Disch: SPEC : [id number] RAMONA: 12/11/24 STATUS: COMP REQ : [id number] RECD: 12/11/[address]: Nellie Turner MD COMP: 12/11/24 ENTERED: 12/11/24 [facility] DR: ORDERED: CBC Auto Diff Test Result Flag Reference WBC 9.3 4.8-10.8 X10*3/uL RBC 4.99 4.20-5.50 X10*6/uL HGB 13.0 12.0-16.0 g/dl HCT 40.8 37.0-47.0 % MCV 81.8 80.0-98.0 fL MCH 26.1 L 27.0-33.0 pg MCHC 31.9 31.0-35.0 g/dl RDW 14.9 11.0-16.0 % PLT 326 160-400 X10*3/uL MPV 11.4 9.4-12.3 fL Neut Pct Auto 60.8 45-73 % ImGran Pct Auto 0.3 0.0-0.4 % Lymp Pct Auto 30.6 20-40 % Cheshire Pct Auto 5.2 2-11 % Eos Pct Auto 2.5 0-4 % Baso Pct Auto 0.6 0-2 % NRBC Pct Auto 0.0 0.0-0.2 /100WBC ANC Neut Abs # 5.7 2.0-8.3 x10*3/uL ImGran Abs Auto 0.03 0.00-0.03 X10*3/uL Lymph Abs Auto 2.9 1.2-4.9 X10*3/uL Cheshire Abs Auto 0.5 0.1-1.2 X10*3/uL Eos Abs Auto 0.2 0.0-0.4 X10*3/uL Baso Abs Auto 0.1 0.0-0.2 X10*3/uL NRBC Abs Auto 0.000 0.0-0.012 X10*3/uL Name: Deyanira Fuentes Age/Sex: 39/F : 1985 Unit#: [id number] Attend Dr: Nellie Turner MD Re12/11/24 Status: DEP [facility]F [facility] Disch: SPEC : [id number] RAMONA: 12/11/24-1309 STATUS: COMP REQ : [id number] RECD: 12/11/24-[address]: Nellie Turner MD COMP: 12/11/24-165 ENTERED: 12/11/24-[address]: ORDERED: Met Prof Fast, Lipid Panel, Vitamin D 25-OH, TSH Rflx Test Result Flag Reference Sodium 137 135-145 mmol/L Potassium 4.3 3.3-5.1 mmol/L CL 106 96-108 mmol/L CO2 24 22-29 mmol/L Gap 11 L 12-20 BUN 12 9-16 mg/dL Creat 0.72 0.5-1.4 mg/dL eGFR > 60 Chronic Kidney Disease: Estimated GFR < 60 mL/min/1.73m2 Severe Kidney Disease: Estimated GFR < 15 mL/min/1.73m2 FBS 85 60-99 mg/dL CA 9.8 8.4-10.2 mg/dL Triglyceride 105 <150 mg/dL Desirable Triglyceride: less than 150 mg/dL Borderline High Triglyceride 150-199 mg/dL High Triglyceride: 200-499 mg/dL Very High Triglyceride: greater than or equal to 5OO mg/dL Cholesterol 161 <200 mg/dL Desirable Cholesterol: less than 200 mg/dL Borderline High Cholesterol: 200-239 mg/dL High Cholesterol: greater than 239 mg/dL LDL Calculated 89 <100 mg/dL Desirable LDL: less than 100 mg/dL Near Optimal/Above Optimal LDL: 110-129 mg/dL Borderline High LDL: 130-159 mg/dL High LDL: 160-189 mg/dL Very High LDL: greater than or equal to 190 mg/dL HDL 51 >40 mg/dL Desirable HDL: greater than 40 mg/dL Note: This HDL assay may give artificially low results in patients with liver disease. Vitamin D 25-OH 37.2 >30 ng/mL Health Based Reference Values* < 20 ng/mL Deficient 20-30 ng/mL Insufficient > 30 ng/mL Sufficient *Alec CARROLL. N Engl J Med. 2007;357:266-280 There is no well-established upper level of normal vitamin D levels. Some laboratories use 50 ng/mL as an upper limit of normal. However, toxicity is patient-dependent and may occur at any level. Careful correlation with the patient's presentation is necessary and, if there is concern for vitamin D toxicity, treatment should be considered irrespective of the serum level. Care must be taken in interpreting Vitamin D results from different laboratories and methodologies. Published data demonstrated that results from patients undergoing hemodialysis may show a negative bias when tested with various automated 25-OH vitamin D assays when compared to LC-MS/MS. When testing samples from patients whose predominant form of Vitamin D is Vitamin D2, such as patients receiving Vitamin D2 supplementation, results that are subtherapeutic s hould be confirmed with another method such as LC-MS/MS. TSH 0.98 0.32-4.0 uIU/mL Coding Level of Care Code Est Pt Prev Care 40-64y(18779) Diagnoses Mixed stress and urge urinary incontinence N39.46 Allergic rhinitis J30.9 Vaccine refused by patient Z28.20 Dorsalgia of thoracic region M54.6 Annual visit for general adult medical examination with abnormal findings Z00.01 Assessment & Plan Assessment & Plan (1) Mixed stress and urge urinary incontinence: Code(s): N39.46 - Mixed incontinence Category: Medical Plan: Currently on mirabegron ER 25 mg daily, which has not been helping much. Will increase dose to 50 mg daily. (2) Allergic rhinitis: Code(s): J30.9 - Allergic rhinitis, unspecified Category: Medical Plan: Uses Flonase nasal spray as needed (3) Vaccine refused by patient: Code(s): Z28.20 - Immunization not carried out because of patient decision for unspecified reason Category: Medical Plan: Patient does not want to get any vaccines (4) Dorsalgia of thoracic region: Code(s): M54.6 - Pain in thoracic spine Category: Medical Plan: . Takes naproxen 500 mg 1 tablet twice a day as needed. Considering getting a referral for breast reduction surgery which she thinks might help alleviate back pain (5) Annual visit for general adult medical examination with abnormal findings: Code(s): Z00.01 - Encounter for general adult medical examination with abnormal findings Plan: Reviewed recent fasting lab results with patient. Continue regular dental visit every 6 months and regular eye exams, at least every 2 years. Take adequate calcium in diet and vitamin-D 3 at 2000 IU per cap once a day, in addition to weight-bearing exercises to help maintain good muscle tone and weight control. Instructed to do self-breast exam, and recommended to get yearly mammogram, mammogram referral ordered. [facility]. Orders: Orders MM tomosynthesis screening BI 01/22/25 Z12.31 - Encounter for screening mammogram for malignant neoplasm of breast Medications: New cholecalciferol (vitamin D3) 50 mcg PO DAILY 90 caps 1RF mirabegron ER (Myrbetriq) 50 mg PO DAILY 30 tabs 5RF N39.46 - Mixed incontinence fluticasone propionate 50 mcg/actuation administer into each nostril 1 spray intranasal Q12H PRN 16 grams 2RF allergy symptoms J30.9 - Allergic rhinitis, unspecified Discontinued mirabegron ER Discontinued Reason: Doctor's Order 25 mg PO DAILY 30 tabs 0RF
[2025-01-22 16:06] VITALS: BP 100/70; PULSE 69; RESP 16; TEMP 36.8; O2SAT 98; BMI 33.7
--- OUTSIDE RECORDS SUMMARY | 2025-01-22 18:48 | XMS_ITS | Clinical Summary ---
Author Organization [facility] Address [address] [place] [phone] Phone Care Team Providers Care Reforestation Worker Name Role Phone Unavailable Primary Care Provider [...] Vaccines (1 - 3-dose SCDM series) 2011 Influenza Vaccines (#1) 2024 COVID-19 Vaccine ( - 2024- season) 2024 IPV Vaccines Completed 04/17/1997, 0704/1994, 05/18/1994, Additional history exists MMR Vaccines Completed [...]
== END 2025-01-22 16:51 | disposition home or self-care (01) ==
LOC: HO.HMCC 16:02
PROVIDERS: PCP Internal Medicine; Visit Provider Internal Medicine
DX: N39.46 Mixed incontinence (principal); J30.9 Allergic rhinitis, unspecified; Z28.20 Immunization not carried out because of patient decision for unspecified reason; M54.6 Pain in thoracic spine; Z00.01 Encounter for general adult medical examination with abnormal findings; Z00.00 Encounter for general adult medical examination without abnormal findings

== ENCOUNTER → 2025-01-22 16:01 | Outpatient (BNVA) | payer OTHER, SELFPAY | PROVIDERS: PCP Internal Medicine; Visit Provider Internal Medicine | DX: Z00.01 Encounter for general adult medical examination with abnormal findings (principal); M54.9 Dorsalgia, unspecified; N39.46 Mixed incontinence; J30.9 Allergic rhinitis, unspecified; M54.6 Pain in thoracic spine; Z28.20 Immunization not carried out because of patient decision for unspecified reason | CPT/HCPCS: 99396 ==

== ENCOUNTER 2025-03-20 09:02 | Outpatient (AMB) | payer OTHER, SELFPAY ==
--- NOTE | 2025-03-20 09:09 | A.OFFVIS_ITS ---
Intake Visit Reasons: mixed incontinence/PVR/UA Intake Note: Patient is present for MIXED INCONTINENCE/PVR/UA Urology Medication:MIRABEGRON Antibiotic Allergy:NONE Blood Thinner:NONE TODAY'S PVR:81ML'S Housefellow Required: No Allergies No Known Allergies Allergy (Verified 03/20/25 09:40) Medication List - Last Reconciled 03/20/25 by ISAÍAS Rg cholecalciferol (vitamin D3) 50 mcg PO DAILY fluticasone propionate 50 mcg/actuation 1 spray intranasal Q12H PRN mirabegron ER (Myrbetriq) 50 mg PO DAILY naproxen (Naprosyn) 500 mg PO BID HPI Comments Details: Deyanira is a very pleasant 40-year-old female patient of Dr. Turner. She has a past medical history of allergic rhinitis, mixed stress and urge urinary incontinence, irregular menses, and IBS. She presents to the office today as a new patient for mixed urinary incontinence. In discussion with the patient today she reports since the of her last child she has been having ongoing issues with mixed urinary incontinence. She describes this labor to be an unplanned home labor. She does have a previous total history of 5 vaginal deliveries. She reports she will utilize a Meri pad all day long as she experiences urinary leakage throughout the day. She denies hematuria, dysuria, foul smelling urine, changes to urinary stream, flank pain, fever, and or chills. She reports followed up with her PCP and was started on Myrbetriq and does feel this has been mildly helpful. She reports she has attempted Kegel's however has not found this helpful. We did discuss at length potential causes and further treatment options of mixed urinary incontinence and risks and benefits of these treatment options. All questions were answered. In office urinalysis results reviewed with the patient today. PVR 81 mL. All questions were answered. She otherwise offers no other issues or concerns at this time. [facility] Medical History Dorsalgia of thoracic region Allergic rhinitis Mixed stress and urge urinary incontinence Irregular menses History of recurrent miscarriages Gallbladder polyp IBS (irritable bowel syndrome) Vaccine refused by patient Annual visit for general adult medical examination with abnormal findings Surgical History No pertinent past surgical history Family History Father Substance use disorder Diabetes mellitus Mother Substance use disorder Mental health disorder Maternal Aunt Substance use disorder Maternal Grandfather Substance use disorder Brother Substance use disorder Mental health disorder Sister Mental health disorder Sister Mental health disorder Social History Housing: House Patient Tobacco Use Status: Former Tobacco user Tobacco use type: Cigarette Cigarettes Per Day: 3 e-Cigarette/Vaping Use: Never Used service: No Current occupational status: employed Cognitive needs: No Hearing needs: No Vision needs: No Review of Systems Const All systems reviewed & are unremarkable except as noted in HPI and below Physical Exam Const General: cooperative, comfortable, no acute distress, well developed, alert and awake Orientation/consciousness: patient oriented x3 HEENT Head: Yes normal to inspection, Yes normocephalic and Yes atraumatic Ears: hearing grossly normal bilaterally Eyes General: appearance normal, both eyes and all related structures Neck Neck: Yes normal visual inspection and Yes trachea midline Chest Chest palpation & inspection: normal inspection of the chest Resp Effort & Inspection: normal respiratory effort and able to speak in complete sentences Cardio Rate: regular rate GI Inspection: Yes normal to inspection General: Yes no CVA tenderness Back/Spine/Pelvis Back: no CVA tenderness Skin General skin exam: no rashes or lesions noted Neuro General: patient oriented x3 Extrem General: Yes normal to inspection Psych Appearance: grossly normal and well kempt Mental Status: mental status grossly normal Speech and movement: Normal speech and movement present and Clear speech present Affect: normal affect Attitude: cooperative Thought process: Normal thought process present Thought content: Normal thought content present Insight: Fair insight present (Psych) Judgement: Fair judgement present (Psych) Office Procedures Post Void Residual Post Residual Void Post Void Residual (PVR): 81 [id number] Void Residual by ultrasound Results AMB Urinalysis, Automated UA Leukoctes 0 Reji/uL Last Edit by LES Self on 03/20/25 09:25 UA Nitrite Negative Last Edit by LES Self on 03/20/25 09:25 UA Urobilinogen 0.2 mg/dL Last Edit by LES Self on 03/20/25 09:2 5 UA Protein 15 mg/dL Last Edit by LES Self on 03/20/25 09:25 UA pH 6.0 Last Edit by LES Self on 03/20/25 09:25 UA Blood 0 Ozzy/uL Last Edit by LES Self on 03/20/25 09:25 UA Specific [place] 1.025 Last Edit by LES Self on 03/20/25 09: 25 UA Ketone Negative Last Edit by LES Self on 03/20/25 09:25 UA Bilirubin 0 mg/dL Last Edit by LES Self on 03/20/25 09:25 UA Glucose 0 mg/dL Last Edit by LES Self on 03/20/25 09:25 Results Reviewed Results Reviewed: Laboratory Last Values Urine pH (Auto) 6.0 03/20/25 09:24 Specific [place] (Auto) 1.025 03/20/25 09:24 Urine Protein (Auto) 15 mg/dL 03/20/25 09:24 Glucose (UA)(Auto) 0 mg/dL 03/20/25 09:24 Urine Ketones (Auto) Negative 03/20/25 09:24 Urine Blood (Auto) 0 Ozzy/uL 03/20/25 09:24 Urine Nitrite (Auto) Negative 03/20/25 09:24 Urine Bilirubin (Auto) 0 mg/dL 03/20/25 09:24 Urine Urobilinogen (Auto) 0.2 mg/dL 03/20/25 09:24 Leukocyte Esterase (Auto) 0 Reji/uL 03/20/25 09:24 Assessment & Plan Assessment & Plan (1) Mixed stress and urge urinary incontinence: Code(s): N39.46 - Mixed incontinence Category: Medical Plan In office urinalysis results with the patient today; as noted above. PVR 81 mL. Stop Myrbetriq. Start Gemtesa as discussed and prescribed. We did discussed potential causes of mixed urinary incontinence as well as further treatment options and risks and benefits of these treatment options. All questions were answered. Information provided regarding in office urodynamics Will refer to pelvic floor therapy for further assessment evaluation. Is will obtain retroperitoneal ultrasound for further assessment evaluation. Follow-up in 1-3 months with imaging and PVR; or sooner with any issues, concerns, and or questions. Orders: Orders AMB Urinalysis Automated Today Z13.9 - Encounter for screening, unspecified US retroperitoneal comp Today N346 - Mixed incontinence PT Evaluation and Treatment Today N346 - Mixed incontinence Medications: New vibegron (Gemtesa) 75 mg PO DAILY 30 tabs 3RF 30 days N32.81 - Overactive bladder Discontinued mirabegron ER (Myrbetriq) Discontinued Reason: Doctor's Order 50 mg PO DAILY 30 tabs 5RF N3.46 - Mixed incontinence Patient Instructions: The patient had an opportunity to ask questions regarding the treatment plan. All questions were answered. Physical exam, labs, and imaging were discussed and reviewed in detail. As well as risks, benefits, and discussion of treatment choices. No major barriers to understanding were identified. The patient expressed understanding and agreement with the above treatment plan. The patient was made aware they should contact our office by phone for worsening of their current condition, the appearance of new symptoms, or with any questions or concerns. Compliance is encouraged with any medications and follow up testing that is ordered. It is a privilege to be allowed the opportunity to participate in? your urological care.? Again, if you have any questions or concerns If you have any questions or concerns please do not hesitate to contact me. The office is [phone]. This note is constructed using voice recognition software. While every effort has been made to ensure accuracy outpatient receptionist errors may have been included. Yours sincerely, ISAÍAS gR Coding Level of Care Code New Pt Level 4 (87004) Diagnoses Mixed stress and urge urinary incontinence N346 CPT Codes Post Residual Void - PVR CPT Code: 36935-Hupp Void Residual by ultrasound ([id number])
--- OUTSIDE RECORDS SUMMARY | 2025-03-20 09:39 | XMS_ITS | Clinical Summary ---
Author Organization [facility] Address [address] [place] [phone] Phone Care Team Providers Care Social Insurance Specialist Name Role Phone Unavailable Primary Care Provider [...] 2024- season) 2024 IPV Vaccines Completed 04/17/1997, 07/04/1994, 05/18/1994, Additional history exists MMR Vaccines Completed [...]
== END 2025-03-20 09:46 | disposition home or self-care (01) ==
LOC: HO.HUSH 09:03
PROVIDERS: PCP Internal Medicine; Visit Provider Nurse Practitioner Family
DX: Z13.9 Encounter for screening, unspecified (principal); N39.46 Mixed incontinence
CPT/HCPCS: 99204

== ENCOUNTER → 2025-03-20 09:02 | Outpatient (BNVA) | payer OTHER, SELFPAY | PROVIDERS: PCP Internal Medicine; Visit Provider Nurse Practitioner Family | DX: N39.46 Mixed incontinence (principal); N32.81 Overactive bladder | CPT/HCPCS: 51798; 81003; 99202 ==

== ENCOUNTER 2025-04-12 12:32 | Outpatient (REF) | payer OTHER, SELFPAY ==
--- OUTSIDE RECORDS SUMMARY | 2025-04-12 12:34 | XMS_ITS | Clinical Summary ---
Author Organization [facility] Address [address] [place] [phone] Phone Care Team Providers Care Secretary Of State Name Role Phone Unavailable Primary Care Provider [...]
== END 2025-04-12 12:33 | disposition home or self-care (01) ==
LOC: HO.MAMMO 12:32
PROVIDERS: PCP Internal Medicine; Visit Provider Internal Medicine
DX: Z12.31 Encounter for screening mammogram for malignant neoplasm of breast (principal)
CPT/HCPCS: 77063; 77067

== ENCOUNTER → 2025-04-12 12:45 | Outpatient (BNV) | payer OTHER, SELFPAY | PROVIDERS: PCP Internal Medicine; Visit Provider Internal Medicine | DX: Z12.31 Encounter for screening mammogram for malignant neoplasm of breast (principal) | CPT/HCPCS: 77063; 77067 ==